=== PATIENT | male | born 1960 | race Caucasian/White ===

== ENCOUNTER 2016-12-21 00:43 | Inpatient (IN) | payer MEDICARE, MEDICAID ==
[~2016-12-21] VITALS: Ht 177.8 cm; Wt 104.2 kg
[2016-12-21 01:56] LABS: BASOPHILS 0.2 % (0-2); EOSINOPHILS 1.2 % (0-7); HEMATOCRIT 34.2 % (42.0-54.0); HEMOGLOBIN 10.6 g/dL (13.5-17.5); IMMATURE GRANULOCYTES 0.2 % (0-5); LYMPHOCYTES 15.9 % (15-50); MCH 34.4 pg (26.0-34.0); MONOCYTES 8.3 % (2-11); NEUTROPHILS 74.2 % (40-80); RBC 3.08 10x6/uL (4.20-6.10); RDW 13.8 % (11.5-14.5); WBC 8.6 10x3/uL (4.8-10.8)
[2016-12-21 02:00] LABS: PLATELET COUNT 127 10x3/uL (130-400)
[2016-12-21 02:07] LABS: ALBUMIN 3.5 g/dL (3.4-5.0); ALKALINE PHOSPHATASE 144 U/L (46-116); ALT (SGPT) 24 U/L (10-68); CALC OSMOLALITY 297 mosm/kg (275-300); CALCIUM 8.7 mg/dL (8.5-10.1); CARBON DIOXIDE 24.4 mmol/L (21.0-32.0); CHLORIDE - SERUM 103 mmol/L (98-107); CREATININE - SERUM 11.2 mg/dL (0.6-1.3); GLUCOSE 102 mg/dL (74-106); POTASSIUM - SERUM 4.5 mmol/L (3.5-5.1); PROTEIN - SERUM 7.2 g/dL (6.4-8.2); SODIUM 141 mmol/L (136-145); UREA NITROGEN 59 mg/dL (7-18); eGFR NON AFRICAN AMERICAN 5 mL/min (90-120)
[2016-12-21 02:17] LABS: AMYLASE - SERUM 94 U/L (25-115); CARBAMAZEPINE (TEGRETOL) 10.8 ug/mL (4.0-12.0); CKMB 1.5 U/L (0.0-3.6); CREATINE KINASE 49 UL (21-232); LIPASE 188 U/L (73-393); PRO BNP 11538 pg/mL (0-125); THYROID STIMULATING HORMONE 1.55 uIU/mL (0.36-3.74); TROPONIN-I 0.045 ng/mL (0.000-0.060)
--- NOTE | 2016-12-21 05:03 | NUR ---
PT ARRIVED VIA STRETCHER. NO DISTRESS NOTED. WILL CONTINUE TO MONITOR.
[2016-12-21] MEDS ORDERED: ZYLOPRIM100 MG PO (05:29)
[2016-12-21 05:30] VITALS: BP 156/95; BMI 34.0
[2016-12-21] MEDS ORDERED: BAYER CHEWABLE81 MG PO (05:30)
[2016-12-21] MEDS ORDERED: TEGRETOL200 MG PO ×2 (05:30→05:31)
[2016-12-21] MEDS ORDERED: KEPPRA1000 MG PO (05:31)
[2016-12-21] MEDS ORDERED: HYDRALAZINE HCL25 MG PO (05:31)
[2016-12-21] MEDS ORDERED: ZESTRIL40 MG PO (05:33)
[2016-12-21] MEDS ORDERED: FUROSEMIDE20 MG PO (05:33)
[2016-12-21] MEDS ORDERED: LOPRESSOR25 MG PO (05:34)
[2016-12-21] MEDS ORDERED: PLAVIX75 MG PO (05:34)
[2016-12-21] MEDS ORDERED: PRAVACHOL40 MG PO (05:35)
[2016-12-21] MEDS ORDERED: RENVELA800 MG PO ×2 (05:35→05:36)
[2016-12-21] MEDS ORDERED: SENNA LAXATIVE8.6 MG PO (05:39)
--- NOTE | 2016-12-21 05:40 | NUR ---
ADMISSION ASSESSMENT, HISTORY AND HOME MED LIST COMPLETED. PT ESSENTIALLY NON-VERBAL. ONLY ABLE TO ANSWER YES/NO TO QUESTIONS. ABLE TO GESTURE INFO. IV TO R THUMB SL. O2 2LNC. LUNGS DIMINISHED IN BASES BILAT. UMBILICUS HERNIA NOTED. L ARM AVF WITH GOOD BRUIT AND THRILL. CM DENOTES SR HR 91. VSS. DENIES ANY DISCOMFORT. SR UP X2, CALL LIGHT WITHIN REACH.
[2016-12-21] MEDS ORDERED: LIDOCAINE-PRILOC5 GM TP (05:41)
[2016-12-21] MEDS ORDERED: LOTRISONE CREAM45 GM TOPICAL (05:41)
[2016-12-21] MEDS ORDERED: ATARAX 25 MG TA25 MG PO (05:43)
[2016-12-21] MEDS ORDERED: CATAPRES0.1 MG PO (05:44)
[2016-12-21] MEDS ORDERED: COLACE100 MG PO (05:45)
[2016-12-21] MEDS ORDERED: ULTRAM50 MG PO (05:45)
[2016-12-21] MEDS ORDERED: ZOFRAN4 MG PO (05:46)
[2016-12-21] MEDS ORDERED: MUCINEX D1 TAB.SR . PO (05:46)
[2016-12-21] MEDS ORDERED: ALLEGRA-D1 TAB.SR . PO (05:47)
[2016-12-21] MEDS ORDERED: OMNICEF300 MG PO (05:47)
[2016-12-21] MEDS ORDERED: PHENERGAN DM SYR5 ML PO (05:47)
[2016-12-21 08:28] VITALS: BP 189/100
[2016-12-21 12:59] VITALS: Ht 177.8 cm; Wt 104.2 kg
[2016-12-21 13:42] VITALS: BP 205/92
[2016-12-21 16:05] VITALS: BP 172/86
--- NOTE | 2016-12-21 17:42 | NUR ---
Mr. Porter had bedside hemodialyis via his left lower arm av fistula from 1511 until 1711. Average bloood flow was 350 mls/minute. Net fluid removed was 2000nmls. Post vital signs were: B/P: 161/84, HR:79, Temp:97.7, Resps:18.
[2016-12-21 20:46] VITALS: BP 144/63; BP 149/60
[2016-12-21 23:58] VITALS: BP 135/54
--- NOTE | 2016-12-22 03:58 | NUR ---
RECIEVED PATIENT IN BED, NON-VERBAL, SIDE RAILS UP X 2, BED LOW LOCKED POSTION, CALL LIGHT AND WATER IN REACH, SEE ASSESSMENT, CPOC.
[2016-12-22 04:11] VITALS: BP 148/57
--- NOTE | 2016-12-22 09:48 | NUR ---
PT REFUSED SCD, PT DOES GET UP AD DOROTEO
[2016-12-22 09:49] VITALS: BP 202/105
[2016-12-22 13:12] VITALS: BP 203/103
--- NOTE | 2016-12-22 15:52 | NUR ---
ALERT AND ORIENTED X4. SITTING UP ON SIDE OF BED. SHOWER AND LINEN CHANGE COMPLETE. RECHECK BP AFTER GIVING PRN CLONIDINE 0.1mg. BP-170/90. HEADACHE RELIEVED BY ULTRAM PER ORDER. FAMILY AT BEDSIDE. SINUS RHTHYM 96bpm ON TELEMETRY. DENIES ANY NEEDS. CONTINUE PLAN OF CARE AND SAFETY PRECAUTIONS.
--- NOTE | 2016-12-22 19:30 | NUR ---
RECEIVED REPORT, SITTING ON SIDE OF BED, DENIES ANY NEEDS, CALL LIGHT IN REACH, AT BEDSIDE, WILL CONTINUE CARE OF PLAN
[2016-12-22 20:00] VITALS: BP 191/94
[2016-12-23 01:32] VITALS: BP 136/72
--- NOTE | 2016-12-23 01:50 | NUR ---
ASLEEP NO DISTRESS. WILL CONTINUE TO MONITOR.
[2016-12-23 04:16] VITALS: BP 188/67
--- NOTE | 2016-12-23 04:30 | NUR ---
ASSESSMENT COMPLETE, SLEEPING ON R.SIDE, CALL LIGHT IN REACH, BED IS LOW, SRX2, WILL CONTINUE PLAN OF CARE
[2016-12-23 06:26] LABS: BASOPHILS 0.4 % (0-2); EOSINOPHILS 2.6 % (0-7); HEMATOCRIT 29.7 % (42.0-54.0); HEMOGLOBIN 9.5 g/dL (13.5-17.5); IMMATURE GRANULOCYTES 0.2 % (0-5); LYMPHOCYTES 21.2 % (15-50); MCH 34.7 pg (26.0-34.0); MCV 108.4 fL (80.0-100.0); MEAN PLATELET VOLUME 10.8 fL (7.4-10.4); MONOCYTES 9.5 % (2-11); NEUTROPHILS 66.1 % (40-80); PLATELET COUNT 112 10x3/uL (130-400); RBC 2.74 10x6/uL (4.20-6.10); RDW 13.9 % (11.5-14.5); WBC 5.3 10x3/uL (4.8-10.8)
[2016-12-23 06:55] LABS: ALBUMIN 3.1 g/dL (3.4-5.0); ANION GAP 19.2 mmol/L (8-16); BILIRUBIN - TOTAL 0.47 mg/dL (0.2-1.3); CALCIUM 8.7 mg/dL (8.5-10.1); CREATININE - SERUM 12.5 mg/dL (0.6-1.3); PHOSPHOROUS 5.6 mg/dL (2.5-4.9); POTASSIUM - SERUM 4.2 mmol/L (3.5-5.1); PROTEIN - SERUM 6.8 g/dL (6.4-8.2)
--- NOTE | 2016-12-23 07:31 | NUR ---
0700-AM ROUNDING DONE WITH PATIENT SHAKING HIS HEAD NO TO ANY NEEDS, NON VERBAL. SALINE LOCK SEEN TO RIGHT THUMB. ON HEART MONITOR SHOWING SR, HR 81. LEFT WRIST AVF WITH + BRUIT AND THRILL, DRESSING TO IT IS CDI. ON 2L PER NC, INSP. WHEEZES HEARD THROUGOUT LUNG GALVAN. CALL LIGHT IN USE, WILL CONTINUE TO MONITOR. FOR DIALYSIS TODAY.
[2016-12-23 08:33] VITALS: BP 187/99
--- NOTE | 2016-12-23 08:57 | NUR ---
PATIENT IS MADE NPO FOR TEST.
--- NOTE | 2016-12-23 09:42 | NUR ---
0930-TO DIALYSIS VIA BED.
--- NOTE | 2016-12-23 13:22 | NUR ---
STILL OFF FLOOR IN DIALYSIS.
--- NOTE | 2016-12-23 13:49 | NUR ---
RETURNS FROM DIALYSIS VIA BED. STILL NPO FOR PIPPIDA SCAN.
--- NOTE | 2016-12-23 16:30 | NUR ---
STILL OFF FLOOR FOR PIPPIDA SCAN.
--- NOTE | 2016-12-23 17:08 | NUR ---
PATIENT TO RETURN TO ROOM FROM RADIOLOGY. WIGGLING HIS LEFT HAND LIKE IT HURTS. HE WAS GIVEN MORPHINE IN RADIOLOGY FOR TEST. I ASKED SAQIB IF HE HAD LAID ON HIS LEFT ARM DURING PROCEDURE AND SHE SAID NO, THAT HE PLACED HIS LEFT ARM ABOUT HIS HEAD FOR APPROX. 20-30 MIN FOR THE TEST. WILL MONITOR.
--- NOTE | 2016-12-23 18:18 | NUR ---
PATIENT SHAKES HIS HEAD YES THAT HIS HAND IS DOING BETTER WHEN ASKED.
[2016-12-23 19:00] VITALS: BP 148/77
--- NOTE | 2016-12-23 19:25 | NUR ---
RECEIVED REPORT, PT SITTING ON SIDE OF BED, BED IS LOW, SRX2, CALL LIGHT IN REACH, WILL CONTINUE PLAN OF CARE
[2016-12-24 00:20] VITALS: BP 187/86
--- NOTE | 2016-12-24 00:37 | NUR ---
TREATING ENGINEER HELPER AT BEDSIDE TO OBTAIN VITALS, CALL LIGHT IN REACH. WILL CONTINUE WITH PLAN OF CARE.
--- NOTE | 2016-12-24 04:17 | NUR ---
ASSESSMENT COMPLETE, SEE FLOWSHEET, BED IS LOW, SRX2, CALL LIGHT IN REACH, WILL CONTINUE PLAN OF CARE
[2016-12-24 04:37] VITALS: BP 166/77
[2016-12-24 06:52] LABS: BASOPHILS 0.7 % (0-2); EOSINOPHILS 4.8 % (0-7); HEMOGLOBIN 11.3 g/dL (13.5-17.5); IMMATURE GRANULOCYTES 0.3 % (0-5); LYMPHOCYTES 13.9 % (15-50); MCH 34.3 pg (26.0-34.0); MCHC 31.1 g/dL (31.0-37.0); MCV 110.3 fL (80.0-100.0); MONOCYTES 8.6 % (2-11); NEUTROPHILS 71.7 % (40-80); RDW 13.7 % (11.5-14.5)
[2016-12-24 06:59] LABS: HEMATOCRIT 36.3 % (42.0-54.0); PLATELET COUNT 148 10x3/uL (130-400); RBC 3.29 10x6/uL (4.20-6.10); WBC 7.2 10x3/uL (4.8-10.8)
[2016-12-24 07:17] LABS: ANION GAP 17.1 mmol/L (8-16); CALCIUM 9.3 mg/dL (8.5-10.1); CARBON DIOXIDE 27.3 mmol/L (21.0-32.0); CREATININE - SERUM 9.6 mg/dL (0.6-1.3); PHOSPHOROUS 5.9 mg/dL (2.5-4.9); POTASSIUM - SERUM 4.4 mmol/L (3.5-5.1)
--- NOTE | 2016-12-24 07:59 | NUR ---
DR HURT ORDERED A CXR ON THIS PATIENT, THERE WAS ALREADY A CXR DONE THIS AM BUT NOT RESULTED YET. SPOKE WITH THE RN AND SHE SAID TO CANCEL IT FOR NOW.
[2016-12-24 08:20] VITALS: BP 151/101
--- NOTE | 2016-12-24 08:30 | NUR ---
PATIENT IS AWAKE AND ALERT. HE IS PLEASANT, EXPLAINED SOME OF HIS NEW MEDICATIONS AND WHY AND WHAT THEY ARE FOR. HE IS GETTING EPOITEN AND LACTOBAC. SINCE HE IS GETTING AN ANTIBIOTIC.
--- NOTE | 2016-12-24 11:45 | NUR ---
EDMUNDO IS HERE FROM [place]. SHE ASKED ABOUT HIS GALLBLADDER AND IT DOES LOOK LIKE THERE IS INFLAMMATION. EXPLAINED THAT DR. RODRÍGUEZ HAS BEEN CONSULTED SO HE WILL BE HERE A WHILE LONGER, NO D/C ORDER. SISTER VERBALIZED UNDERSTANDING.
[2016-12-24 12:28] VITALS: BP 212/106
--- NOTE | 2016-12-24 12:39 | NUR ---
PATIENTS BLOOD PRESSURE IS 212/106, CLONIDINE 0.1 MG PO GIVEN NOW.
--- NOTE | 2016-12-24 14:43 | NUR ---
Nutrition Follow Up: Spoke with pt and pt's . He stated that he has not been eating well because he has been laying in bed. Pt agreed to Nepro daily. Food preferences noted. Pt is eating 33% meal avg on a renal diet. Wt loss 7# since admit likely r/t fluid. +BM 12/22/16. Labs reviewed - BUN, Cr, Phos elevated. Meds noted. Pt with poor po intake at this time. Rec continue current diet. Rec consider an appetite stimulant. Will send Nepro with breakfast meal. RD will continue to monitor pt progress.
[2016-12-24 16:54] VITALS: BP 174/93
--- NOTE | 2016-12-24 18:07 | NUR ---
DENIES NEEDS AT PRESENT TIME. FOR DIALYSIS TOMORROW. WILL CONTINUE TO MONITOR.
--- NOTE | 2016-12-24 19:31 | NUR ---
ASSESSMENT COMPLETE, A&O. RESPERATIONS EVEN ON RA. IV TO RIGHT HAND SL. SITE CLEAN AND DRY. RESERVE LEFT ARM FOR AVF (+,+). PT DENIES PAIN OR NEEDS AT THIS TIME, BED LOW, CL IN REACH.
--- NOTE | 2016-12-24 21:11 | NUR ---
HS MEDS GIVEN, PHONE CALL PLACED TO PTS SISTER AT PT REQUEST. NO OTHER NEEDS AT THIS TIME, BED LOW, CL IN REACH, WILL CONT TO MONITOR.
[2016-12-24 22:47] VITALS: BP 154/87
--- NOTE | 2016-12-25 00:15 | NUR ---
DIALYSIS COORDINATOR: PATHWAYS: [facility] DIALYSIS WED/WED/WED @ 9:45AM. LINN TAYLOR.
--- NOTE | 2016-12-25 00:37 | NUR ---
SUPERVISOR MULTIFOCAL LENS AT BEDSIDE TO OBTAIN VITALS, CALL LIGHT IN REACH. WILL CONTINUE WITH PLAN OF CARE.
[2016-12-25 01:51] VITALS: BP 133/84
--- NOTE | 2016-12-25 04:26 | NUR ---
RESTING WITH EYES CLOSED, RESPERATIONS EVEN, NO S/S DISTRESS NOTED.
[2016-12-25 05:12] LABS: BASOPHILS 0.6 % (0-2); EOSINOPHILS 6.6 % (0-7); HEMATOCRIT 32.3 % (42.0-54.0); IMMATURE GRANULOCYTES 0.3 % (0-5); LYMPHOCYTES 18.4 % (15-50); MCV 109.9 fL (80.0-100.0); MEAN PLATELET VOLUME 11.1 fL (7.4-10.4); MONOCYTES 10.8 % (2-11); NEUTROPHILS 63.3 % (40-80); PLATELET COUNT 126 10x3/uL (130-400); RBC 2.94 10x6/uL (4.20-6.10); WBC 6.2 10x3/uL (4.8-10.8)
[2016-12-25 05:13] VITALS: BP 118/55
[2016-12-25 05:29] LABS: ANION GAP 16.4 mmol/L (8-16); CALCIUM 8.8 mg/dL (8.5-10.1); CREATININE - SERUM 11.9 mg/dL (0.6-1.3); PHOSPHOROUS 7.6 mg/dL (2.5-4.9); POTASSIUM - SERUM 4.4 mmol/L (3.5-5.1)
--- NOTE | 2016-12-25 07:29 | NUR ---
AM ROUNDING DONE WITH PATIENT LAYING ON BACK WITH EYES CLOSED, RESP ARE EVEN AND NON LABORED. RESERVE LEFT ARM AVF. FOR DIALYSIS TODAY. ON HEART MONITOR SHOWING SR, HR 75. SALINE LOCK SEEN TO RIGHT HAND. WILL MONITOR.
[2016-12-25 08:00] VITALS: BP 124/54
[2016-12-25] MEDS ORDERED: NEPHRO-VITE RX1 TAB PO (09:47)
--- NOTE | 2016-12-25 10:56 | NUR ---
Patient Name: MILLI BOSWELL Admission Status: ER Accout number: [id number] Admission Date: 12-21-2016 : 1960 Admission Diagnosis:PNEUMONIA, UNSPECIFIED ORGANISM Attending: AJ Current LOS: 4 Anticipated DC Date: 12-25-2016 Planned Disposition: Assisted Living Primary Insurance: MEDICARE A & B PLANNED EXTERNAL PROVIDER: [facility] IN [place] Discharge Planning Comments: * Is the patient Alert and Oriented? Yes 0 * How many steps to enter\exit or inside your home? NONE 0 * PCP DR. KARLY GOMEZ 0 * Pharmacy [facility] IN [place] 0 * Preadmission Environment Assisted Living 0 * Facility Name [facility], 0 * ADLs Partial Dependent 0 * Partial ADLs (Assistance needed) Medication Management 0 * Equipment None 0 * Other Equipment NO MEDICAL EQUIPMENT PROVIDER PREFERENCE 0 * List name and contact numbers for known caregivers / representatives who currently or will assist patient after discharge: ELKE REED, SISTER, 0 * Community resources currently utilized Assisted Living 0 * Please name any agencies selected above. [facility] IN [place] 0 * Additional services required to return to the preadmission environment? No 0 * Can the patient safely return to the preadmission environment? Yes 0 * Has this patient been hospitalized within the prior 30 days at any hospital? No 0 CM MET WITH PT IN ROOM TO DISCUSS DISCHARGE NEEDS AND PLANNING. PT REPORTS LIVING AT [facility] IN [facility]IVING, THEY ASSIST WITH MEALS, MEDICATIONS AND TRANSPORTATION TO AND FROM DIALYSIS. PT REPORTS FEELING SAFE THERE AND WILL RETURN TO HIS APARTMENT AT DISCHARGE. [facility] OR HIS SISTER WILL PICK HIM UP. CM LATER RECEIVED DISCHARGE ORDER, CALLED [facility], , SPOKE TO ELSY WHO REPORTS PT WAS TRANSFERRING AND WALKING INDEPENDENTLY AND WITHOUT ASSISTIVE DEVICE. ELSY WILL CALL PT'S SISTER AND SEE IF SHE CAN PICK HIM UP TODAY AFTER LUNCH AND IF NOT, [facility] WILL SEND THE V[facility]. FOR DISHCHARGE, FAX DISCHARGE INFORMATION TO [facility] AT [phone], NURSE REPORT TO BE CALLED TO NURSE JOEL OF [facility] AT [phone]. PT'S SISTER OR [facility] WILL CARDIOTHORACIC ICU RN PT THIS AFTERNOON FOR DISCHARGE HOME. Drip Pumper: Poncho Kessler
--- NOTE | 2016-12-25 12:07 | NUR ---
STILL OFF FLOOR IN DIALYSIS.
--- NOTE | 2016-12-25 13:04 | NUR ---
REPORT CALLED TO WISAM AT [facility].
--- NOTE | 2016-12-25 14:14 | NUR ---
STILL IN DIALYSIS.
--- NOTE | 2016-12-25 14:30 | NUR ---
PATIENT TO RETURN TO ROOM FROM DIALYSIS. I CALLED WISAM AT [facility] AND SHE WILL CONTACT ELKE (SISTER) TO COME PICK HIM UP.
--- NOTE | 2016-12-25 15:46 | NUR ---
ELKE HERE TO PICK HIM UP FOR DISCHARGE. PATIENT GESTURES THAT HIS RIGHT LEG HIS NUMB. ABLE TO WALK WITH ASSIST. EYES ARE EQUAL AND REACTIVE, RIGHT HAND IS SLIGHTLY WEAKER THAN RIGHT, NO DROOPING OF MOUTH. CALL PLACED TO RAISA LEGGETT APN WITH RENAL FOR FURTHER ORDERS. SALINE LOCK IS STILL IN. AWAITING CALL BACK.
--- NOTE | 2016-12-25 15:48 | NUR ---
ON HEART MONITOR SR, HR 96.
--- NOTE | 2016-12-25 16:07 | NUR ---
Patient Name: MILLI BOSWELL Encounter No: [id number] : 1960 Primary Insurance: MEDICARE A & B Anticipated DC Date: 12-25-2016 Planned Disposition: Assisted Living External Planned Provider: [facility] IN [place] DCP follow-up note: CM FAXED DISCHARGE INFORMATION TO [facility] AT [phone]. NURSE REPORT TO BE CALLED TO NURSE JOEL OF [facility] AT [phone]. PT'S SISTER HERE TO REPACK ROOM WORKER PT THIS AFTERNOON FOR DISCHARGE HOME. IMPORTANT MESSAGE FROM MEDICARE PROVIDED AND EXPLAINED. Content Designer: Poncho Kessler
[2016-12-25 16:46] VITALS: BP 153/84
--- NOTE | 2016-12-25 16:50 | NUR ---
1644-RAISA LEGGETT APN TO CALL BACK AND INFORMATION IS GIVEN TO HER. I ALSO TOLD HER THAT 1700 CC WAS PULLED OFF AND THAT HE HAS SOME CRAMPING AT THE END OF DIALYSIS. SHE THOUGHT THAT HE WAS OKAY STILL FOR DISCHAGE. THIS IS RELAYED TO ELKE AND THE PATIENT.
--- NOTE | 2016-12-25 17:53 | NUR ---
VERBAL AND WRITTEN DISCHARGE INSTRUCTIONS GIVEN TO PATIENT AND SISTER. SALINE LOCK REMOVED WITH CATH TIP INTACT. COBAN WRAPPED AROUND HAND TO STOP BLEEDING. PAST WATCHING THIS FOR SEVERAL MINUTES, DISCHARGED HOME VIA WHEELCHAIR.
== END 2016-12-25 17:55 | disposition home or self-care (01) | DRG 193 ==
LOC: D.ER 00:43 → D.M2 04:07
PROVIDERS: Family Medicine; Internal Medicine Nephrology; ADMIT Internal Medicine
PROC: 5A1D60Z (ICD-10-PCS; principal; 2016-12-21)
DX: J18.9 Pneumonia, unspecified organism (principal); N18.6 End stage renal disease; I13.2 Hypertensive heart and chronic kidney disease with heart failure and with stage 5 chronic kidney disease, or end stage renal disease; K80.10 Calculus of gallbladder with chronic cholecystitis without obstruction; Z99.2 Dependence on renal dialysis; G40.909 Epilepsy, unspecified, not intractable, without status epilepticus; I69.991 Dysphagia following unspecified cerebrovascular disease; D63.1 Anemia in chronic kidney disease; I50.9 Heart failure, unspecified; R13.10 Dysphagia, unspecified; K43.9 Ventral hernia without obstruction or gangrene; I25.10 Atherosclerotic heart disease of native coronary artery without angina pectoris; E78.5 Hyperlipidemia, unspecified; Z95.5 Presence of coronary angioplasty implant and graft; Z87.891 Personal history of nicotine dependence

== ENCOUNTER 2017-01-04 03:18 | Emergency (ER) | payer MEDICARE, MEDICAID ==
[2016-12-21 12:59] VITALS: BMI 33.8
[~2017-01-04 03:18] MED LIST: ALLEGRA-D1 TAB.SR . PO; ATARAX 25 MG TA25 MG PO; BAYER CHEWABLE81 MG PO; CATAPRES0.1 MG PO; COLACE100 MG PO; FUROSEMIDE20 MG PO; HYDRALAZINE HCL25 MG PO; KEPPRA1000 MG PO; LIDOCAINE-PRILOC5 GM TP; LOPRESSOR25 MG PO; LOTRISONE CREAM45 GM TOPICAL; MUCINEX D1 TAB.SR . PO; NEPHRO-VITE RX1 TAB PO; OMNICEF300 MG PO; PHENERGAN DM SYR5 ML PO; PLAVIX75 MG PO; PRAVACHOL40 MG PO; RENVELA800 MG PO; SENNA LAXATIVE8.6 MG PO; TEGRETOL200 MG PO; ULTRAM50 MG PO; ZESTRIL40 MG PO; ZOFRAN4 MG PO; ZYLOPRIM100 MG PO
[2017-01-04 04:10] LABS: BASOPHILS 0.7 % (0-2); EOSINOPHILS 2.1 % (0-7); HEMATOCRIT 33.3 % (42.0-54.0); HEMOGLOBIN 10.5 g/dL (13.5-17.5); IMMATURE GRANULOCYTES 0.3 % (0-5); LYMPHOCYTES 23.7 % (15-50); MCH 34.7 pg (26.0-34.0); MCHC 31.5 g/dL (31.0-37.0); MCV 109.9 fL (80.0-100.0); MEAN PLATELET VOLUME 10.1 fL (7.4-10.4); MONOCYTES 7.7 % (2-11); NEUTROPHILS 65.5 % (40-80); RBC 3.03 10x6/uL (4.20-6.10); RDW 13.5 % (11.5-14.5); WBC 6.7 10x3/uL (4.8-10.8)
[2017-01-04 04:16] LABS: PLATELET COUNT 179 10x3/uL (130-400)
[2017-01-04 04:24] LABS: ALBUMIN 3.4 g/dL (3.4-5.0); ANION GAP 17.7 mmol/L (8-16); BILIRUBIN - TOTAL 0.31 mg/dL (0.2-1.3); CALCIUM 8.8 mg/dL (8.5-10.1); CARBON DIOXIDE 25.9 mmol/L (21.0-32.0); CREATININE - SERUM 11.8 mg/dL (0.6-1.3); POTASSIUM - SERUM 4.6 mmol/L (3.5-5.1); PROTEIN - SERUM 7.4 g/dL (6.4-8.2)
[2017-01-04 04:28] LABS: TROPONIN-I 0.043 ng/mL (0.000-0.060)
== END 2017-01-04 05:44 | disposition home or self-care (01) ==
LOC: D.ER 03:18
PROVIDERS: Emergency Medicine
DX: R06.00 Dyspnea, unspecified (principal); I12.0 Hypertensive chronic kidney disease with stage 5 chronic kidney disease or end stage renal disease; N18.6 End stage renal disease; I50.9 Heart failure, unspecified; G40.909 Epilepsy, unspecified, not intractable, without status epilepticus; Z86.73 Personal history of transient ischemic attack (TIA), and cerebral infarction without residual deficits; I49.3 Ventricular premature depolarization; I45.10 Unspecified right bundle-branch block

== ENCOUNTER 2017-01-05 17:14 | Emergency (ER) | payer MEDICARE ==
[2016-12-21 12:59] VITALS: BMI 33.8
== END 2017-01-05 20:44 | disposition home or self-care (01) ==
LOC: D.ER 17:14
DX: R04.2 Hemoptysis (principal); I50.9 Heart failure, unspecified; I12.0 Hypertensive chronic kidney disease with stage 5 chronic kidney disease or end stage renal disease; N18.6 End stage renal disease; Z86.73 Personal history of transient ischemic attack (TIA), and cerebral infarction without residual deficits

== ENCOUNTER 2017-01-17 23:42 | Emergency (ER) | payer MEDICARE ==
[2016-12-21 12:59] VITALS: BMI 33.8
[2017-01-18 00:36] LABS: HEMATOCRIT 30.5 % (42.0-54.0); HEMOGLOBIN 9.8 g/dL (13.5-17.5); LYMPHOCYTES 18.2 % (15-50); MCH 34.3 pg (26.0-34.0); MCHC 32.1 g/dL (31.0-37.0); MCV 106.6 fL (80.0-100.0); MEAN PLATELET VOLUME 10.4 fL (7.4-10.4); NEUTROPHILS 69.9 % (40-80); PLATELET COUNT 163 10x3/uL (130-400); RBC 2.86 10x6/uL (4.20-6.10); RDW 13.2 % (11.5-14.5); WBC 6.4 10x3/uL (4.8-10.8)
[2017-01-18 01:00] LABS: ANION GAP 17.1 mmol/L (8-16); BILIRUBIN - TOTAL 0.39 mg/dL (0.2-1.3); CALCIUM 8.3 mg/dL (8.5-10.1); CARBON DIOXIDE 26.7 mmol/L (21.0-32.0); CREATININE - SERUM 10.9 mg/dL (0.6-1.3); POTASSIUM - SERUM 4.8 mmol/L (3.5-5.1); PROTEIN - SERUM 6.7 g/dL (6.4-8.2); TROPONIN-I 0.042 ng/mL (0.000-0.060)
== END 2017-01-18 02:35 | disposition home or self-care (01) ==
LOC: D.ER 23:42
PROVIDERS: Family Medicine; Physician Assistant Medical
DX: I50.9 Heart failure, unspecified (principal); R06.00 Dyspnea, unspecified; G40.909 Epilepsy, unspecified, not intractable, without status epilepticus; I12.9 Hypertensive chronic kidney disease with stage 1 through stage 4 chronic kidney disease, or unspecified chronic kidney disease; N18.9 Chronic kidney disease, unspecified

== ENCOUNTER 2017-01-25 01:51 | Emergency (ER) | payer MEDICARE ==
[2016-12-21 12:59] VITALS: BMI 33.8
== END 2017-01-25 05:25 | disposition home or self-care (01) ==
LOC: D.ER 01:51
DX: R06.02 Shortness of breath (principal); N18.6 End stage renal disease; E87.70 Fluid overload, unspecified; I50.9 Heart failure, unspecified; I10 Essential (primary) hypertension

== ENCOUNTER 2017-02-16 13:39 | Emergency (ER) | payer MEDICARE ==
[2016-12-21 12:59] VITALS: BMI 33.8
[2017-02-16 14:51] LABS: BASOPHILS 0.6 % (0-2); EOSINOPHILS 2.6 % (0-7); HEMATOCRIT 30.4 % (42.0-54.0); HEMOGLOBIN 9.6 g/dL (13.5-17.5); IMMATURE GRANULOCYTES 0.2 % (0-5); LYMPHOCYTES 25.6 % (15-50); MCH 34.7 pg (26.0-34.0); MCHC 31.6 g/dL (31.0-37.0); MCV 109.7 fL (80.0-100.0); MEAN PLATELET VOLUME 10.5 fL (7.4-10.4); MONOCYTES 13.8 % (2-11); NEUTROPHILS 57.2 % (40-80); PLATELET COUNT 167 10x3/uL (130-400); RBC 2.77 10x6/uL (4.20-6.10); RDW 13.4 % (11.5-14.5); WBC 5.4 10x3/uL (4.8-10.8)
[2017-02-16 15:03] LABS: ALBUMIN 3.2 g/dL (3.4-5.0); ANION GAP 17.7 mmol/L (8-16); BILIRUBIN - TOTAL 0.46 mg/dL (0.2-1.3); CALCIUM 8.7 mg/dL (8.5-10.1); CARBON DIOXIDE 25.2 mmol/L (21.0-32.0); CREATININE - SERUM 9.4 mg/dL (0.6-1.3); POTASSIUM - SERUM 4.9 mmol/L (3.5-5.1); PROTEIN - SERUM 7.1 g/dL (6.4-8.2)
== END 2017-02-16 16:47 | disposition home or self-care (01) ==
LOC: D.ER 13:39
PROVIDERS: Emergency Medicine
DX: I10 Essential (primary) hypertension (principal); R11.0 Nausea; I12.9 Hypertensive chronic kidney disease with stage 1 through stage 4 chronic kidney disease, or unspecified chronic kidney disease; N18.9 Chronic kidney disease, unspecified; G40.909 Epilepsy, unspecified, not intractable, without status epilepticus

== ENCOUNTER 2017-03-21 22:07 | Emergency (ER) | payer MEDICARE ==
[2016-12-21 12:59] VITALS: BMI 33.8
[2017-03-21 22:43] LABS: BASOPHILS 0.6 % (0-2); EOSINOPHILS 3.1 % (0-7); HEMATOCRIT 35.5 % (42.0-54.0); HEMOGLOBIN 11.3 g/dL (13.5-17.5); IMMATURE GRANULOCYTES 0.2 % (0-5); LYMPHOCYTES 19.1 % (15-50); MCH 33.3 pg (26.0-34.0); MCHC 31.8 g/dL (31.0-37.0); MCV 104.7 fL (80.0-100.0); MEAN PLATELET VOLUME 10.7 fL (7.4-10.4); MONOCYTES 8.8 % (2-11); NEUTROPHILS 68.2 % (40-80); PLATELET COUNT 292 10x3/uL (130-400); RBC 3.39 10x6/uL (4.20-6.10); RDW 13.3 % (11.5-14.5); WBC 12.1 10x3/uL (4.8-10.8)
[2017-03-21 23:04] LABS: ALBUMIN 3.7 g/dL (3.4-5.0); ANION GAP 22.1 mmol/L (8-16); BILIRUBIN - TOTAL 0.99 mg/dL (0.2-1.3); CALCIUM 8.5 mg/dL (8.5-10.1); CARBON DIOXIDE 23.1 mmol/L (21.0-32.0); CREATININE - SERUM 11.2 mg/dL (0.6-1.3); POTASSIUM - SERUM 5.2 mmol/L (3.5-5.1); PROTEIN - SERUM 8.2 g/dL (6.4-8.2)
[2017-03-21 23:10] LABS: MAGNESIUM - SERUM 2.4 mg/dL (1.8-2.4); TROPONIN-I 0.049 ng/mL (0.000-0.060)
== END 2017-03-22 00:10 | disposition home or self-care (01) ==
LOC: D.ER 22:07
PROVIDERS: Emergency Medicine
DX: I12.0 Hypertensive chronic kidney disease with stage 5 chronic kidney disease or end stage renal disease (principal); N18.6 End stage renal disease; R60.9 Edema, unspecified; I45.10 Unspecified right bundle-branch block

== ENCOUNTER 2017-04-06 09:25 | Inpatient (IN) | payer MEDICARE ==
[~2017-04-06] VITALS: Ht 177.8 cm; Wt 106.0 kg
--- NOTE | ~2017-04-06 | CN ---
PATIENT NAME:MILLI BOSWELL MEDICAL RECORD: [id number] : [birth year] LOCATION:D. D.2134 ADMIT DATE: 04/06/17 ACCOUNT: [id number] CONSULTING PHYSICIAN: CARLY MARSHALL MD REFERRING PHYSICIAN: CLYDE SAMPSON MD DATE OF CONSULTATION: 04/07/2017 CONSULT REQUESTING PHYSICIAN: Dr. Clyde Sampson. REASON FOR CONSULTATION: Pneumonia, acute exacerbation of chronic obstructive pulmonary disease. HISTORY OF PRESENT ILLNESS: Mr. Boswell is a 56-year-old gentleman, very well known to me. According to the patient, he is sick for the last couple of days. He has a fever. He is coughing and he has shortness of breath. The cough is productive with white-yellow colored sputum production. REVIEW OF SYSTEMS: Mainly in the history of present illness. PAST MEDICAL HISTORY: 1. History of cerebrovascular accident. 2. Seizure disorder. 3. Aphasic. 4. Hypertension. 5. Congestive heart failure. 6. Coronary artery disease status post stent angioplasty. 7. Peripheral vascular disease. 8. Hyperlipidemia. 9. Obstructive sleep apnea on CPAP. PAST SURGICAL HISTORY: He is status post fistula placement. ALLERGIES: There are no known drug allergies. PRESENT MEDICATIONS: On Proximal Data was reviewed. PERSONAL AND SOCIAL HISTORY: The patient is an ex-smoker. He is a nondrinker. FAMILY HISTORY: Significant for cardiovascular disease. PHYSICAL EXAMINATION: GENERAL: Now, the patient is lying comfortably in bed. He is not in acute distress. VITAL SIGNS: The blood pressure is 145/80, pulse is 83, respiration is 16, temperature 98.2, SPO2 is 98% on 2 liters nasal cannula. HEENT: Conjunctivae pink, sclerae nonicteric. NECK: Supple, no JVD. CHEST: Excursion is minimal on both sides. There are bilateral crackles. Wheeze on forceful expiration. HEART: Rhythm regular, normal sound, no murmur. ABDOMEN: Soft. Bowel sounds present. No hepatosplenomegaly. RECTAL: Deferred. EXTREMITIES: No cyanosis, no clubbing, no pedal edema. SKIN: Warm, normal turgor. CENTRAL NERVOUS SYSTEM: The patient is aphasic, status post cerebrovascular CONSULT REPORT [id number] MILLI BOSWELL accident. IMAGING: Chest radiograph, there is bilateral interstitial marking. OTHER LABORATORY DATA: CBC: WBC 7.7, hemoglobin 9.2, hematocrit 29 and platelet count 160. Chemistry: Sodium is 140, potassium 5.1, BUN is 65, creatinine 11.1, glucose 104. IMPRESSION: 1. Acute hypoxic respiratory failure secondary to pneumonia consistent with community-acquired pneumonia. 2. Pulmonary edema, possible fluid overload with end-stage renal disease. 3. Acute exacerbation of chronic obstructive pulmonary disease. 4. Obstructive sleep apnea, CPAP machine at home. 5. Ex-smoker. 6. History of cerebrovascular accident. 7. Seizure disorder. RECOMMENDATION: 1. Continue Zosyn and vancomycin. 2. Start methylprednisolone IV, Brovana and budesonide nebulizer b.i.d., albuterol and ipratropium nebulizer q.i.d. 3. Follow up labs and chest radiograph in the morning. Dr. Sampson once again thank you for involving me in the care of Mr. Boswell. TRANSINT:[id number] Voice Confirmation ID: [id number] DOCUMENT ID: [id number] CARLY MARSHALL MD CC: CLYDE SAMPSON MD [id number] DICTATION DATE: 04/07/17 1507 SCRAP METAL BURNER: 04/07/17 2100 ADM IN [facility] [address] [id number]
[2017-04-06 10:26] LABS: BASOPHILS 0.9 % (0-2); EOSINOPHILS 1.8 % (0-7); HEMOGLOBIN 9.6 g/dL (13.5-17.5); IMMATURE GRANULOCYTES 0.2 % (0-5); LYMPHOCYTES 11.1 % (15-50); MCH 33.8 pg (26.0-34.0); MCV 105.6 fL (80.0-100.0); MEAN PLATELET VOLUME 10.7 fL (7.4-10.4); MONOCYTES 16.6 % (2-11); NEUTROPHILS 69.4 % (40-80); RBC 2.84 10x6/uL (4.20-6.10); RDW 13.5 % (11.5-14.5); WBC 6.6 10x3/uL (4.8-10.8)
[2017-04-06 10:31] LABS: PLATELET COUNT 164 10x3/uL (130-400)
[2017-04-06 10:39] LABS: ALBUMIN 3.1 g/dL (3.4-5.0); BILIRUBIN - TOTAL 0.75 mg/dL (0.2-1.3); CALCIUM 8.7 mg/dL (8.5-10.1); CARBON DIOXIDE 25.7 mmol/L (21.0-32.0); CREATININE - SERUM 9.4 mg/dL (0.6-1.3); POTASSIUM - SERUM 4.7 mmol/L (3.5-5.1); PROTEIN - SERUM 7.6 g/dL (6.4-8.2)
--- NOTE | 2017-04-06 23:20 | NUR ---
TO ROOM 1216 FROM ER VIA IID.PT IS WITHOUT DISTRESS.02 AT 2 LITERS PER NASAL CANULA.KRACKLES HEARD THROUGHOUT LUNG GALVAN.PT IS APHASIC ,BUT SAYS YES AND NO. PT ALSO HAS TROUBLE EXPRESSING HIS NEEDS.ASSESSMENT PER FLOW SHEET.CALL LIGHT IN REACH
[2017-04-06 23:58] VITALS: BP 199/112; BMI 33.2
[2017-04-07 05:23] LABS: BASOPHILS 0.4 % (0-2); EOSINOPHILS 1.8 % (0-7); HEMOGLOBIN 9.2 g/dL (13.5-17.5); IMMATURE GRANULOCYTES 0.1 % (0-5); LYMPHOCYTES 14.1 % (15-50); MCHC 31.7 g/dL (31.0-37.0); MCV 103.9 fL (80.0-100.0); MEAN PLATELET VOLUME 10.8 fL (7.4-10.4); MONOCYTES 13.2 % (2-11); NEUTROPHILS 70.4 % (40-80); PLATELET COUNT 160 10x3/uL (130-400); RBC 2.79 10x6/uL (4.20-6.10); RDW 13.1 % (11.5-14.5); WBC 7.7 10x3/uL (4.8-10.8)
--- NOTE | 2017-04-07 05:39 | NUR ---
SITTING UP AT BEDSIDE,WITHOUT DISTRESS.REMAINS [facility] CHANGE.[facility]
[2017-04-07 05:57] LABS: ANION GAP 21.2 mmol/L (8-16); CALCIUM 8.6 mg/dL (8.5-10.1); CARBAMAZEPINE (TEGRETOL) 7.8 ug/mL (4.0-12.0); CARBON DIOXIDE 23.9 mmol/L (21.0-32.0); CREATININE - SERUM 11.1 mg/dL (0.6-1.3); PHOSPHOROUS 7.7 mg/dL (2.5-4.9); POTASSIUM - SERUM 5.1 mmol/L (3.5-5.1); VANCOMYCIN - RANDOM 14.5 ug/mL (10.0-20.0)
--- NOTE | 2017-04-07 07:30 | NUR ---
AWAKE AND ALERT. ORIENTED X3. RESPONDS CORRECTLY TO YES/NO QUESTIONS. LUNGS HAVE CRACKLES WHEEZES AND DIMINISHED THROUGHOUT GLENNY IN LOWER LOBES. OCCASSIONALLLY PRODUCTIVE COUGH NOTED. SKIN IS INTACT WITHOUT REDNESS. AV FISTULA TO LEFT WRIST WITH GOOD BRUIT AND THRILL. SL TO TO LEFT AC PATENT WITHOUT REDNESS AT INSERTION SITE. DENIES NEEDS.
[2017-04-07 08:26] VITALS: BP 145/80
--- NOTE | 2017-04-07 09:30 | NUR ---
ATE ALL OF BREAKFAST PER SELF. OFF UNIT VIA BED FOR DIALYSIS.
[2017-04-07 10:36] VITALS: Ht 177.8 cm; Wt 106.0 kg
--- NOTE | 2017-04-07 14:30 | NUR ---
RETURNED FROM DIALYSIS VIA BED. A/O X3. FAMILY IN ROOM. NO C/O AT THIS TIME. ATE ALL OF LUNCH. NO CHANGES NOTED.
[2017-04-07 16:40] VITALS: BP 167/78
--- NOTE | 2017-04-07 18:00 | NUR ---
ARRIVE TO ROOM VIA WHEELCHAIR FROM WOMEN'S. ALERT AND ORIENTED X4. RESERVE LEFT ARM. DIALYSIS M-W-. HISTORY OF CVA. SPEECH SLURRED. DENIES ANY NEEDS. CONTINUE PLAN OF CARE. BED LOCKED AND LOW. CALL LIGHT IN REACH. TWO SIDERAILS UP.
--- NOTE | 2017-04-07 18:12 | NUR ---
REPORT CALLED TO MADISON MCDONOUGH ON MED 2. PATIENT TRANSFERRED VIA WC TO ROOM 2134. ALL QUESTIONS ANSWERED. ALL BELONGINGSTRANSFERRED.
[2017-04-07 19:00] VITALS: BP 159/78
--- NOTE | 2017-04-08 01:32 | NUR ---
CALL LIGHT IN REACH, WILL CONTINUE WITH PLAN OF CARE.
[2017-04-08 04:00] VITALS: BP 152/69
[2017-04-08 06:54] LABS: ANION GAP 18.7 mmol/L (8-16); CALCIUM 8.6 mg/dL (8.5-10.1); CARBON DIOXIDE 26.1 mmol/L (21.0-32.0); CREATININE - SERUM 9.6 mg/dL (0.6-1.3); POTASSIUM - SERUM 4.8 mmol/L (3.5-5.1); VANCOMYCIN - RANDOM 20.6 ug/mL (10.0-20.0)
[2017-04-08 06:55] LABS: BASOPHILS 0.3 % (0-2); EOSINOPHILS 0 % (0-7); HEMATOCRIT 28.4 % (42.0-54.0); IMMATURE GRANULOCYTES 1.6 % (0-5); LYMPHOCYTES 6.2 % (15-50); MCH 33.7 pg (26.0-34.0); MCHC 31.7 g/dL (31.0-37.0); MEAN PLATELET VOLUME 11.3 fL (7.4-10.4); MONOCYTES 5.1 % (2-11); NEUTROPHILS 86.8 % (40-80); PLATELET COUNT 151 10x3/uL (130-400); RBC 2.67 10x6/uL (4.20-6.10); RDW 13.2 % (11.5-14.5); WBC 6.3 10x3/uL (4.8-10.8)
[2017-04-08 06:59] LABS: MCV 106.4 fL (80.0-100.0)
--- NOTE | 2017-04-08 07:33 | NUR ---
PT SITTING UP IN BED RECEIVING BREATHING TX DENIES NEEDS AT THIS TIME WILL CONT TO MONITOR.
[2017-04-08 08:00] VITALS: BP 197/76
[2017-04-08 12:00] VITALS: BP 149/71
[2017-04-08 15:36] VITALS: BP 170/85
--- NOTE | 2017-04-08 17:10 | NUR ---
PT C/O ALL THE NOISE FROM CONFUSED COMBATIVE PATIENTS IN THE AREA. (PT IS THE ONLY ALERT AND ORIENTED/NON YELLING PT IN HIS POD). OFFERED TO MOVE PT TO ANOTHER ROOM IN A QUIETER POD, PT REFUSED. SAID HE DIDNT NEED TO BE MOVED THAT HE WAS FINE. AGREES. LET PT AND FAMILY KNOW THAT IF HE WANTED TO BE MOVED AND IF IT GOT TO BE TOO MUCH TO LET NURSING STAFF KNOW, PT AGREES.
--- NOTE | 2017-04-08 18:22 | NUR ---
PT SITTING UP ON SIDE OF BED DENIES ANY NEEDS AT THIS TIME
[2017-04-08 19:00] VITALS: BP 154/73
--- NOTE | 2017-04-08 19:22 | NUR ---
PT IN BED ATTENTION TOWARDS TELEVISION. DENIES NEEDS AT THIS TIME WILL CONTINUE TO MONITOR
[2017-04-09] VITALS: BP 140/58
--- NOTE | 2017-04-09 04:07 | NUR ---
PEER COUNSELOR AT BEDSIDE TO OBTAIN VITALS, CALL LIGHT IN REACH. WILL CONTINUE WITH PLAN OF CARE.
[2017-04-09 05:28] LABS: BASOPHILS 0 % (0-2); EOSINOPHILS 0 % (0-7); HEMOGLOBIN 8.6 g/dL (13.5-17.5); IMMATURE GRANULOCYTES 0.3 % (0-5); LYMPHOCYTES 5.6 % (15-50); MCH 32.3 pg (26.0-34.0); MCHC 31.9 g/dL (31.0-37.0); MEAN PLATELET VOLUME 10.9 fL (7.4-10.4); MONOCYTES 6.3 % (2-11); NEUTROPHILS 87.8 % (40-80); PLATELET COUNT 144 10x3/uL (130-400); RBC 2.66 10x6/uL (4.20-6.10); RDW 12.8 % (11.5-14.5); WBC 6.5 10x3/uL (4.8-10.8)
[2017-04-09 05:32] LABS: MCV 101.5 fL (80.0-100.0)
[2017-04-09 05:37] LABS: ANION GAP 22.8 mmol/L (8-16); CALCIUM 8.3 mg/dL (8.5-10.1); CARBON DIOXIDE 24.7 mmol/L (21.0-32.0); PHOSPHOROUS 7.8 mg/dL (2.5-4.9); POTASSIUM - SERUM 4.5 mmol/L (3.5-5.1); VANCOMYCIN - RANDOM 19.7 ug/mL (10.0-20.0)
[2017-04-09 05:38] LABS: CREATININE - SERUM 12.4 mg/dL (0.6-1.3)
--- NOTE | 2017-04-09 07:53 | NUR ---
PT SITTING UP IN BED DENIES ANY NEEDS AT THIS TIME WILL CONT TO MONITOR
[2017-04-09 08:00] VITALS: BP 150/78
--- NOTE | 2017-04-09 14:40 | NUR ---
Mr. Malave had hemodialysis today via his left lower arm av fistula from 1115 until 1415. Average blood flow was 350 mls/minute. Net fluid removed was 3000 mls. Post vital signs were: B/P: 162/77, HR: 87, Temp: 97.8, Resps: 18. No problems other than dificulty sticking.
[2017-04-09 16:24] VITALS: BP 153/69
--- NOTE | 2017-04-09 18:35 | NUR ---
PT SITTING UP ON SIDE OF BED DENIES NEEDS
[2017-04-09 19:00] VITALS: BP 158/66
--- NOTE | 2017-04-09 19:49 | NUR ---
BEDSIDE SHIFT REPORTING REC'D PT SITTING UP IN BED RESTING QUIETLY WATCHING TV AT THIS TIME. PT DENIES ANY CURRENT PAIN OR NEEDS AT THIS TIME. WILL CPOC.
[2017-04-10] VITALS: BP 151/83
[2017-04-10 04:00] VITALS: BP 148/78
[2017-04-10 06:24] LABS: BASOPHILS 0.4 % (0-2); EOSINOPHILS 0.3 % (0-7); HEMATOCRIT 30.9 % (42.0-54.0); HEMOGLOBIN 9.6 g/dL (13.5-17.5); IMMATURE GRANULOCYTES 0.5 % (0-5); LYMPHOCYTES 11.4 % (15-50); MCH 32.3 pg (26.0-34.0); MCHC 31.1 g/dL (31.0-37.0); MEAN PLATELET VOLUME 10.8 fL (7.4-10.4); MONOCYTES 11.1 % (2-11); NEUTROPHILS 76.3 % (40-80); RBC 2.97 10x6/uL (4.20-6.10)
[2017-04-10 06:29] LABS: PLATELET COUNT 201 10x3/uL (130-400); WBC 9.9 10x3/uL (4.8-10.8)
[2017-04-10 06:44] LABS: ANION GAP 21.2 mmol/L (8-16); CALCIUM 8.7 mg/dL (8.5-10.1); CARBON DIOXIDE 25.6 mmol/L (21.0-32.0); CREATININE - SERUM 9.8 mg/dL (0.6-1.3); PHOSPHOROUS 6.6 mg/dL (2.5-4.9); POTASSIUM - SERUM 3.8 mmol/L (3.5-5.1); VANCOMYCIN - RANDOM 17.3 ug/mL (10.0-20.0)
--- NOTE | 2017-04-10 07:58 | NUR ---
PT AOX4 RESP EVEN AND NONLABORED PT DENIES NEED AT THIS TIME IV TO LEFT WRIST PATENT AND INACT AT THIS TIME SRX2 BED AT LOWEST SETTING CALL LIGHT WITHIN REACH WILL CONTINUE TO MONITOR
[2017-04-10 08:49] VITALS: BP 180/86
[2017-04-10 13:18] VITALS: BP 136/74
--- NOTE | 2017-04-10 19:42 | NUR ---
RESUMED CARE OF PT, LYING IN BED RESPIRATIONS EVEN AND UNLABORED ON 3LPM VIA NC. UPDRAFT IN PROGRESS. 89 SR ON TELEMETRY, RIGHT AC SALINE LOCKED. SEE NURSE ASSESSMENT. NO NEEDS NOTED AT THIS TIME. CALL LIGHT IN REACH.
[2017-04-10 20:23] VITALS: BP 152/82
--- NOTE | 2017-04-11 00:49 | NUR ---
IV TO RIGHT UPPER ARM INFILTRATED, DC'D WITH TIP INTACT. ATTEMPTED TO RESTART IV, UNABLE TO OBTAIN IV ACCESS AND PT REFUSED ADDITIONAL STICKS. CALL LIGHT IN REACH. WILL CONTINUE TO MONITOR.
[2017-04-11 01:29] VITALS: BP 176/96
[2017-04-11 04:54] LABS: BASOPHILS 0.2 % (0-2); EOSINOPHILS 0.1 % (0-7); HEMATOCRIT 31.2 % (42.0-54.0); HEMOGLOBIN 9.8 g/dL (13.5-17.5); IMMATURE GRANULOCYTES 1.1 % (0-5); LYMPHOCYTES 10.1 % (15-50); MCH 32.6 pg (26.0-34.0); MCHC 31.4 g/dL (31.0-37.0); MCV 103.7 fL (80.0-100.0); MONOCYTES 8.4 % (2-11); NEUTROPHILS 80.1 % (40-80); PLATELET COUNT 196 10x3/uL (130-400); RBC 3.01 10x6/uL (4.20-6.10); RDW 13.1 % (11.5-14.5); WBC 9.8 10x3/uL (4.8-10.8)
[2017-04-11 05:09] LABS: ANION GAP 25.9 mmol/L (8-16); CALCIUM 8.6 mg/dL (8.5-10.1); CARBON DIOXIDE 21.9 mmol/L (21.0-32.0); CREATININE - SERUM 12.1 mg/dL (0.6-1.3); PHOSPHOROUS 8.1 mg/dL (2.5-4.9)
[2017-04-11 05:10] LABS: POTASSIUM - SERUM 4.8 mmol/L (3.5-5.1)
[2017-04-11 05:44] VITALS: BP 145/68
--- NOTE | 2017-04-11 06:14 | NUR ---
NO CHANGES FROM PREVIOUS ASSESSMENT, CALL LIGHT IN REACH. WILL CONTINUE TO MONITOR.
[2017-04-11 07:58] VITALS: BP 156/75
--- NOTE | 2017-04-11 08:03 | NUR ---
Pt is alert and oriented, speech difficulty due to hx of CVA, but able to communicate via combination of speech and hand gestures. Receiving breathing tx per respiratory staff in AM, denies SOB, denies pain. AVF to left forearm positive for thrill and bruit with dressing intact. Continues O2 at 2L via nasal cannula, is oliguric, continent of bowel. Renagel given with breakfast without observable swallowing difficulty. Pt and staff continue to maintain ISO/droplet precautions due to dx of Klebsiella pneumonia. Lung sounds diminished LLL, expiratory wheezing to all lobes on rt. Order noted that SCDs and Heparin not to be used due to risk of bleed, is up ad kelsea in room Per mini shifter report, pt has no current peripheral IV, Dr. Del Angel to be notified today.
[2017-04-11 10:19] LABS: VANCOMYCIN - RANDOM 14.1 ug/mL (10.0-20.0)
--- NOTE | 2017-04-11 11:28 | NUR ---
Florajen3 not removed as med was in med cart due to being removed previously. Med was given as directed.
[2017-04-11 11:54] VITALS: BP 168/86
--- NOTE | 2017-04-11 12:26 | NUR ---
Pt preferred to take Florajen closer or with Renagel at lunch time. Pt continues to deny pain, lying in bed watching TV after meal. Per Dr. Del Angel when rounding earlier in shift, physician requests IV Zosyn to be held due to lack of peripheral IV, which was attempted by RN and unable to obtain. Physician or RESIN FILTERER will call with new orders/advise on change to oral antibiotic after they consult secondary physician. Pt was made aware of and is in agreement with current plan.
--- NOTE | 2017-04-11 12:42 | NUR ---
Spoke with Dr. Del Angel in person who states he and MEKHI Betancourt awaiting decision by Dr. Wall regarding discontinuing Zosyn and ordering oral antibiotic. Per Dr. Del Angel, they will notify nurse when decision is made.
--- NOTE | 2017-04-11 15:57 | NUR ---
Pt resting quietly in bed, denies pain, denies needs at this time. Requested cup of fresh ice to be brought in with dinner tray.
[2017-04-11 16:12] VITALS: BP 192/82
--- NOTE | 2017-04-11 17:09 | NUR ---
Spoke with Dr. Wall in person to advise that peripheral IV was not obtained and requested IV antibiotics to change to PO per earlier conversation with Dr. Rosales. Per Dr. Wall, IV will need to be started, and physician will review meds. No new order at this time. Assisted visitor to dress in ISO precautions at dinner. Pt is sitting on side of bed, eating, denies pain, denies needs at this time.
--- NOTE | 2017-04-11 17:58 | NUR ---
Pt has wound to posterior lower leg/ankle with loose dressing, changed with minimal c/o pain. Wound is approx 9cm x 5.5cm, (narrowing to approx 1.8cm wide at ankle). Wound bed is 90% pink, with 10% yellow slough. Depth is < 0.1cm to area above ankle, but area over tendon at ankle is approx 1.8cm deep. Wound has even borders with no edema, no surrounding erythema, and no excoriation to surrounding area. Drainage serosanguinous, scant, with mild odor. Wound was cleaned with wound cleanser, covered with 4x4 gauze, wrapped with Kerlix and taped to secure.
--- NOTE | 2017-04-11 18:24 | NUR ---
Pt has no current IV, Solumedrol returned. Will request next shift to attempt IV. Physicians aware of no IV access at this time.
--- NOTE | 2017-04-11 19:51 | NUR ---
RESUMED CARE OF PT, UP IN BATHROOM. EMERGENCY LIGHT IN REACH. WILL CONTINUE TO MONITOR. SEE NURSE ASSESMENT.
[2017-04-11 20:00] VITALS: BP 138/62
--- NOTE | 2017-04-11 23:16 | NUR ---
SITTING ON SIDE OF BED, CALL LIGHT IN REACH. WILL CONTINUE TO MONITOR.
[2017-04-12] VITALS: BP 142/75
[2017-04-12 04:00] VITALS: BP 146/59
[2017-04-12 06:26] LABS: BASOPHILS 0.3 % (0-2); EOSINOPHILS 1.8 % (0-7); HEMATOCRIT 29.6 % (42.0-54.0); HEMOGLOBIN 9.4 g/dL (13.5-17.5); IMMATURE GRANULOCYTES 1.3 % (0-5); LYMPHOCYTES 10.7 % (15-50); MCH 32.8 pg (26.0-34.0); MCHC 31.8 g/dL (31.0-37.0); MCV 103.1 fL (80.0-100.0); MEAN PLATELET VOLUME 10.8 fL (7.4-10.4); MONOCYTES 10.7 % (2-11); NEUTROPHILS 75.2 % (40-80); PLATELET COUNT 200 10x3/uL (130-400); RBC 2.87 10x6/uL (4.20-6.10); RDW 12.9 % (11.5-14.5); WBC 9.7 10x3/uL (4.8-10.8)
[2017-04-12 07:04] LABS: ANION GAP 25.8 mmol/L (8-16); CARBON DIOXIDE 19.7 mmol/L (21.0-32.0); POTASSIUM - SERUM 4.5 mmol/L (3.5-5.1); VANCOMYCIN - RANDOM 12.5 ug/mL (10.0-20.0)
--- NOTE | 2017-04-12 07:30 | NUR ---
REPORT RECIEVED. PT RESTING QUEITLY, RRE JOO AND UNLABORED. PT SEEMS IRRIATED/FRUSTRATED THIS MORNING. UNABLE TO FORM COMPLETE SENETENCES DUE TO HX OF CVA. WILL ANSWER YES/NO QUESTIONS. ASSESSMENT PERFORMED. INTRODUCED SELF AND PLACED NAME ON WHITE BAORD. BED IN LOWEST POSTION, CALL PARKS IN REACH, WILL CTM.
[2017-04-12 08:00] VITALS: BP 174/82
--- NOTE | 2017-04-12 09:30 | NUR ---
22 G IV RESTARTED TO RIGHT UPPER ARM, PER ANA LEMA VASCULAR NURSE.
[2017-04-12 12:00] VITALS: BP 157/83
--- NOTE | 2017-04-12 12:03 | NUR ---
PT REFUSED SWALLOW EVAL, BECAME VERY AGITATED.
--- NOTE | 2017-04-12 14:03 | NUR ---
Mr. Porter had bedside hemodialysis today via his left lower arm av fistula. Average blood flow was 350 mls/minute. Pt started cramping in his hands and calves at 1718 off. I gave 200 mls normal saline for comfort leaving him with a net 1518mls. Post vital signs were: B/P: 166/83, HR: 87, Temp: 97.6, Resps: 20.
--- NOTE | 2017-04-12 18:30 | NUR ---
PT RESTING QUIELTY, RR EVEN AND UNLABORED. WILL GIVE REPORT ON PT CONDITION FOR THE DAY.
[2017-04-12 19:00] VITALS: BP 137/70
--- NOTE | 2017-04-12 19:36 | NUR ---
PT ASLEEP, LAYING ON LEFT SIDE. RESPIRATIONS EVEN AND UNLABORED. NO S/S OF DISTRESS. WILL CPOC
[2017-04-13 04:00] VITALS: BP 197/92
[2017-04-13 05:36] LABS: BASOPHILS 0.2 % (0-2); EOSINOPHILS 0.6 % (0-7); HEMATOCRIT 33.6 % (42.0-54.0); HEMOGLOBIN 10.6 g/dL (13.5-17.5); IMMATURE GRANULOCYTES 3.2 % (0-5); LYMPHOCYTES 9.6 % (15-50); MCH 32.6 pg (26.0-34.0); MCHC 31.5 g/dL (31.0-37.0); MCV 103.4 fL (80.0-100.0); MEAN PLATELET VOLUME 10.7 fL (7.4-10.4); MONOCYTES 4.5 % (2-11); NEUTROPHILS 81.9 % (40-80); PLATELET COUNT 225 10x3/uL (130-400); RBC 3.25 10x6/uL (4.20-6.10); WBC 12.8 10x3/uL (4.8-10.8)
[2017-04-13 06:06] LABS: ANION GAP 21.4 mmol/L (8-16); CALCIUM 8.8 mg/dL (8.5-10.1); CARBON DIOXIDE 24.2 mmol/L (21.0-32.0); CREATININE - SERUM 10.1 mg/dL (0.6-1.3); PHOSPHOROUS 7.4 mg/dL (2.5-4.9); POTASSIUM - SERUM 4.6 mmol/L (3.5-5.1)
--- NOTE | 2017-04-13 07:00 | NUR ---
RECEIVED REPORT. ASSUMED CARE OF PATIENT. CALL LIGHT WITHIN REACH. PATIENT NOTED TO HAVE APHASIA. PATIENTS SISTER AT BEDSIDE. DENIES NEEDS. DENIES PAIN. NO DISTRESS.
--- NOTE | 2017-04-13 07:39 | NUR ---
PT IV NOT FLUSHING. IV INFLATRATION. SOLU-MED NOT GIVEN AAT THIS TIME. WILL CHECK FOR ACCESS. PT HAS NO S/S OF DISTRESS. WILL CPOC
[2017-04-13 08:00] VITALS: BP 190/69
--- NOTE | 2017-04-13 08:58 | NUR ---
0800 CALLED AND LEFT MESSAGE FOR ANA VASCULAR NURSE FOR MIDLINE PLACEMENT. STILL AWAITING CALL BACK AT THIS TIME.
[2017-04-13 12:00] VITALS: BP 176/85
--- NOTE | 2017-04-13 13:55 | NUR ---
Patient Name: MILLI BOSWELL Admission Status: ER Accout number: [id number] Admission Date: 04-06-2017 : 1960 Admission Diagnosis:PNEUMONIA, UNSPECIFIED ORGANISM Attending: YVONNE Current LOS: 7 Anticipated DC Date: Planned Disposition: Assisted Living Primary Insurance: MEDICARE A & B PLANNED EXTERNAL PROVIDER: [facility] IN [place] Discharge Planning Comments: * Is the patient Alert and Oriented? Yes 0 * How many steps to enter\exit or inside your home? NONE 0 * PCP DR. MARTELL IN [place] 0 * Pharmacy [facility] IN [place] 0 * Preadmission Environment Assisted Living 0 * Facility Name [facility], 0 * ADLs Partial Dependent 0 * Partial ADLs (Assistance needed) Medication Management 0 * Equipment None 0 * Other Equipment NO MEDICAL EQUIPMENT PROVIDER PREFERENCE 0 * List name and contact numbers for known caregivers / representatives who currently or will assist patient after discharge: ELKE REED, SISTER, 0 * Community resources currently utilized Other 0 * Please name any agencies selected above. OUTPATIENT DIALYSIS, [place] [facility], M/W/F, 9236, [facility] 0 * Additional services required to return to the preadmission environment? No 0 * Can the patient safely return to the preadmission environment? Yes 0 * Has this patient been hospitalized within the prior 30 days at any hospital? No 0 CM MET WITH PT AND SISTER IN ROOM TO DISCUSS DISCHARGE PLANNING AND NEEDS. PT REPORTS LIVING AT [facility] IN [place], ASSISTED LIVING. PT REPORTS THEY ASSIST WITH MEAL PREPARATION, MEDICATIONS AND TRANSPORATION SERVICES. PT HAS NO MEDICAL EQUIPMENT AND NO OUTSIDE SERVICES ASSISTING IN THE HOME. PT GOES TO DIALYSIS IN [place] ON MWF SCHEDULE, TRANSPORT BY [facility]. CM DISCUSSED AVAILABILITY OF HOME HEALTH, REHAB SERVICES AND MEDICAL EQUIPMENT. PT DENIES DISCHARGE NEEDS, PT'S SISTER STATES SHE WILL PICK PT UP FOR DISCHARGE HOME. FOR DISCHARGE, FAX DISCHARGE INFORMATION TO [facility] AT [phone]. NURSE REPORT TO BE CALLED TO [facility] AT [phone]. PT'S SISTER TO TRANSPORT PT HOME. Issuer: Poncho Kessler
[2017-04-13 20:00] VITALS: BP 146/57
[2017-04-14] VITALS: BP 156/69
--- NOTE | 2017-04-14 03:25 | NUR ---
PT SITTING ON SIDE OF BED. DENIES ANY NEEDS. NO S/S OF DISTRESS. BED LOW AND CALLLIGHT WITHIN REACH. WILL CPOC
[2017-04-14 05:55] LABS: BASOPHILS 0.4 % (0-2); EOSINOPHILS 0.6 % (0-7); HEMATOCRIT 29.7 % (42.0-54.0); HEMOGLOBIN 9.8 g/dL (13.5-17.5); IMMATURE GRANULOCYTES 3.9 % (0-5); LYMPHOCYTES 15.4 % (15-50); MCH 33.6 pg (26.0-34.0); MCV 101.7 fL (80.0-100.0); MEAN PLATELET VOLUME 10.4 fL (7.4-10.4); MONOCYTES 9.3 % (2-11); NEUTROPHILS 70.4 % (40-80); PLATELET COUNT 230 10x3/uL (130-400); RBC 2.92 10x6/uL (4.20-6.10); RDW 13.1 % (11.5-14.5)
[2017-04-14 06:06] LABS: WBC 7.9 10x3/uL (4.8-10.8)
[2017-04-14 06:07] LABS: ANION GAP 23.9 mmol/L (8-16); CALCIUM 8.5 mg/dL (8.5-10.1); CARBON DIOXIDE 20.9 mmol/L (21.0-32.0); PHOSPHOROUS 8.7 mg/dL (2.5-4.9); POTASSIUM - SERUM 4.8 mmol/L (3.5-5.1); VANCOMYCIN - RANDOM 19.5 ug/mL (10.0-20.0)
[2017-04-14 06:21] LABS: CREATININE - SERUM 12.7 mg/dL (0.6-1.3)
--- NOTE | 2017-04-14 07:30 | NUR ---
REPORT RECIEVED. PT RESTING QUIELTY, RR EVEN AND UNLABORED. APPEARS TO BE RELAXED AND CALM THIS MORNING. INTRODUCED SELF AND PLACED NAME ON WHITE BOARD. ASSESSMENT PERFOMRED. PT DENIES PAIN AND NEEDS AT THIS TIME, WILL CTM.
[2017-04-14 08:00] VITALS: BP 172/79
--- NOTE | 2017-04-14 12:45 | NUR ---
PT DONE WITH DIALYSIS, RESTING QUIETLY, RR EVEN AND UNLABORED. DENIES NEEDS, WILL CTM.
--- NOTE | 2017-04-14 12:46 | NUR ---
Mr. Porter had bedside hemodialysis today via his left lower arm av fistula from 0932 until 1233. Average blood flow was 350 mls/minute. Net fluid remove was only 903 mls due to patient's cramping and yellling from cramping pain.Post vital signs were: B/P: 173/82, Temp: 997,7, Resps:22.
--- NOTE | 2017-04-14 13:47 | NUR ---
Nutrition Follow Up: Pt is eating 67% meal avg on a renal diet. Wt stable. +BM 04/12/17. Labs reviewed. Meds noted including Solu Medrol. Rec continue current diet. Will continue to provide selective menus and honor food preferences within diet ordered. RD following.
[2017-04-14 16:33] VITALS: BP 159/75
--- NOTE | 2017-04-14 18:07 | NUR ---
PT RESTING QUIETLY, RR EVEN AND UNLABORED. DENIES NEEDS AT THIS TIME. WILL GIVE REPORT ON PT CONDITION FOR THE DAY.
--- NOTE | 2017-04-14 19:10 | NUR ---
PT SITTING ON SIDE OF BED. DENIES ANY PAIN OR NEEDS. RESPIRATIONS EVEN AND UNLABORED. NO S/S OF DISTRESS. WILL CPOC
[2017-04-14 20:00] VITALS: BP 154/81
--- NOTE | 2017-04-14 23:57 | NUR ---
PT ASLEEP RESPIRATIONS EVEN AND UNLABORED. WOKE PT TO GIVE HIM HIS LEVOFLOXAIN. PT DENIES ANY NEEDS. NO S/S OF DISTRESS. CALL LIGHT WITHIN REACH WILL CPOC
[2017-04-15] VITALS: BP 139/82
[2017-04-15 04:00] VITALS: BP 140/87
[2017-04-15 06:20] LABS: BASOPHILS 0.4 % (0-2); EOSINOPHILS 1.2 % (0-7); HEMATOCRIT 31.2 % (42.0-54.0); IMMATURE GRANULOCYTES 3.5 % (0-5); LYMPHOCYTES 16.7 % (15-50); MCH 32.9 pg (26.0-34.0); MCHC 32.1 g/dL (31.0-37.0); MCV 102.6 fL (80.0-100.0); MEAN PLATELET VOLUME 10.4 fL (7.4-10.4); NEUTROPHILS 66.2 % (40-80); PLATELET COUNT 236 10x3/uL (130-400); RBC 3.04 10x6/uL (4.20-6.10); RDW 13.3 % (11.5-14.5); WBC 7.7 10x3/uL (4.8-10.8)
[2017-04-15 06:45] LABS: ANION GAP 19.8 mmol/L (8-16); CALCIUM 8.4 mg/dL (8.5-10.1); CARBON DIOXIDE 25.5 mmol/L (21.0-32.0); CREATININE - SERUM 9.7 mg/dL (0.6-1.3); PHOSPHOROUS 7.1 mg/dL (2.5-4.9); POTASSIUM - SERUM 4.3 mmol/L (3.5-5.1)
--- NOTE | 2017-04-15 06:50 | NUR ---
PT RESTING IN BED. DENIES ANY NEEDS. NO S/S OF DISTRESS. WILL CPOC
--- NOTE | 2017-04-15 07:40 | NUR ---
ASSESSMENT COMPLETED.RIGHT UPPER ARM IV. RESERVE LEFT AVF. DIALYSIS TM T W. ON DROPPLET ISLODENIES ANY NEEDS. CALL LIGHT IN REACH WITH SR Cynthia PA.
[2017-04-15] MEDS ORDERED: PROAIR HFA8.5 GM INH (09:30)
[2017-04-15 09:31] VITALS: BP 146/65
[2017-04-15] MEDS ORDERED: LEVAQUIN250 MG PO (09:31)
[2017-04-15] MEDS ORDERED: MEDROL DOSE PACK4 MG PO (09:31)
--- NOTE | 2017-04-15 11:46 | NUR ---
Patient Name: MILLI BOSWELL Encounter No: [id number] : 1960 Primary Insurance: MEDICARE A & B Anticipated DC Date: Planned Disposition: Assisted Living External Planned Provider: [facility] DCP follow-up note: CM RECEIVED DISCHARGE ORDER, MET WITH PT IN ROOM WHO IS IN AGREEMENT WITH DISCHARGE HOME TODAY. IMPORTANT MESSAGE FROM MEDICARE PROVIDED AND EXPLAINED. CM CALLED ELKE REED, , NOTIFIED OF DISCHARGE; ELKE WILL METAL ALLOY SCIENTIST PT AFTER LUNCH FOR TRANSPORT BACK TO [facility] TODAY. CM FAXED DISCHARGE INFORMATION TO [facility] AT [phone]. CM CALLED WISAM AT [facility], , NOTIFIED OF PT'S DISCHARGE AND TRANSPORTATION ARRANGEMENTS. NURSE REPORT TO BE CALLED TO NURSE JOEL AT [facility] AT [phone]. PT'S SISTER TO TRANSPORT PT HOME. Residency Coordinator: Poncho Kessler
--- NOTE | 2017-04-15 15:01 | NUR ---
DISCHARGED. IV DCD WITH TIP INTACT. TO PRIVATE CAR PER WHEELCHAIR
== END 2017-04-15 15:02 | disposition home or self-care (01) | DRG 189 ==
LOC: D.ER 09:25 → OBSVTIME 21:54 → D.WS 21:54 → D.M2 21:55
PROVIDERS: Family Medicine; Internal Medicine Nephrology; ADMIT Internal Medicine Nephrology
PROC: 5A1D60Z (ICD-10-PCS; principal; 2017-04-06)
DX: J96.01 Acute respiratory failure with hypoxia (principal); N18.6 End stage renal disease; J15.0 Pneumonia due to Klebsiella pneumoniae; J44.0 Chronic obstructive pulmonary disease with (acute) lower respiratory infection; J44.1 Chronic obstructive pulmonary disease with (acute) exacerbation; I13.2 Hypertensive heart and chronic kidney disease with heart failure and with stage 5 chronic kidney disease, or end stage renal disease; I50.9 Heart failure, unspecified; Z99.2 Dependence on renal dialysis; G40.909 Epilepsy, unspecified, not intractable, without status epilepticus; E78.5 Hyperlipidemia, unspecified; D63.1 Anemia in chronic kidney disease; Z87.891 Personal history of nicotine dependence; G47.33 Obstructive sleep apnea (adult) (pediatric); I25.10 Atherosclerotic heart disease of native coronary artery without angina pectoris; Z95.5 Presence of coronary angioplasty implant and graft; I69.920 Aphasia following unspecified cerebrovascular disease; I69.991 Dysphagia following unspecified cerebrovascular disease; R13.10 Dysphagia, unspecified

== ENCOUNTER → 2017-05-06 13:04 | Outpatient (CLI) | payer MEDICARE ==
[2017-04-07 10:36] VITALS: BMI 33.1
[~2017-05-06 13:04] MED LIST changes: +LEVAQUIN250 MG PO; +MEDROL DOSE PACK4 MG PO; +PROAIR HFA8.5 GM INH
== END | disposition home or self-care (01) ==
LOC: D.RT 04-13 13:00 → D.CT 04-13 14:00 → D.RT 04-14 13:00
DX: R04.2 Hemoptysis (principal); J44.9 Chronic obstructive pulmonary disease, unspecified

== ENCOUNTER 2017-05-13 22:03 | Emergency (ER) | payer MEDICARE ==
[2017-04-07 10:36] VITALS: BMI 33.1
[2017-05-13 22:33] LABS: BASOPHILS 0.5 % (0-2); EOSINOPHILS 1.8 % (0-7); HEMATOCRIT 26.5 % (42.0-54.0); HEMOGLOBIN 8.2 g/dL (13.5-17.5); IMMATURE GRANULOCYTES 0.3 % (0-5); LYMPHOCYTES 21.9 % (15-50); MCH 31.5 pg (26.0-34.0); MCHC 30.9 g/dL (31.0-37.0); MCV 101.9 fL (80.0-100.0); MONOCYTES 7.7 % (2-11); NEUTROPHILS 67.8 % (40-80); PLATELET COUNT 216 10x3/uL (130-400); WBC 8.7 10x3/uL (4.8-10.8)
[2017-05-13 22:44] LABS: ALBUMIN 3.1 g/dL (3.4-5.0); ALKALINE PHOSPHATASE 104 U/L (46-116); ALT (SGPT) 27 U/L (10-68); CALC OSMOLALITY 298 mosm/kg (275-300); CALCIUM 8.6 mg/dL (8.5-10.1); CARBON DIOXIDE 28.1 mmol/L (21.0-32.0); CHLORIDE - SERUM 105 mmol/L (98-107); CREATININE - SERUM 8.2 mg/dL (0.6-1.3); GLUCOSE 97 mg/dL (74-106); PROTEIN - SERUM 7.3 g/dL (6.4-8.2); SODIUM 143 mmol/L (136-145); UREA NITROGEN 51 mg/dL (7-18); eGFR NON AFRICAN AMERICAN 7 mL/min (90-120)
[2017-05-13 22:51] LABS: CREATINE KINASE 108 UL (21-232); PRO BNP 11759 pg/mL (0-125); TROPONIN-I < 0.017 ng/mL (0.000-0.060)
== END 2017-05-14 00:45 | disposition home or self-care (01) ==
LOC: D.ER 22:03
PROVIDERS: Emergency Medicine
DX: R06.00 Dyspnea, unspecified (principal); I12.0 Hypertensive chronic kidney disease with stage 5 chronic kidney disease or end stage renal disease; N18.6 End stage renal disease; D64.9 Anemia, unspecified

== ENCOUNTER 2017-05-16 18:46 | Inpatient (IN) | payer MEDICARE ==
[2017-05-16 20:37] LABS: BASOPHILS 0.5 % (0-2); EOSINOPHILS 1.8 % (0-7); HEMATOCRIT 27.6 % (42.0-54.0); HEMOGLOBIN 8.4 g/dL (13.5-17.5); IMMATURE GRANULOCYTES 0.2 % (0-5); LYMPHOCYTES 12.1 % (15-50); MCH 31.5 pg (26.0-34.0); MCHC 30.4 g/dL (31.0-37.0); MCV 103.4 fL (80.0-100.0); MEAN PLATELET VOLUME 10.6 fL (7.4-10.4); MONOCYTES 7.8 % (2-11); NEUTROPHILS 77.6 % (40-80); PLATELET COUNT 248 10x3/uL (130-400); RBC 2.67 10x6/uL (4.20-6.10); RDW 17.4 % (11.5-14.5)
[2017-05-16 20:41] LABS: ALBUMIN 3.3 g/dL (3.4-5.0); ALKALINE PHOSPHATASE 121 U/L (46-116); ALT (SGPT) 26 U/L (10-68); BILIRUBIN - TOTAL 0.44 mg/dL (0.2-1.3); CALC OSMOLALITY 297 mosm/kg (275-300); CALCIUM 8.6 mg/dL (8.5-10.1); CARBON DIOXIDE 25.3 mmol/L (21.0-32.0); CHLORIDE - SERUM 102 mmol/L (98-107); CREATININE - SERUM 8.9 mg/dL (0.6-1.3); GLUCOSE 111 mg/dL (74-106); POTASSIUM - SERUM 5.5 mmol/L (3.5-5.1); PROTEIN - SERUM 8.3 g/dL (6.4-8.2); SODIUM 141 mmol/L (136-145); UREA NITROGEN 56 mg/dL (7-18); eGFR NON AFRICAN AMERICAN 7 mL/min (90-120)
[2017-05-16 20:51] LABS: AMYLASE - SERUM 134 U/L (25-115); CREATINE KINASE 168 UL (21-232); LIPASE 480 U/L (73-393); PRO BNP 14601 pg/mL (0-125); THYROID STIMULATING HORMONE 1.33 uIU/mL (0.36-3.74)
[2017-05-16 20:52] LABS: TROPONIN-I < 0.017 ng/mL (0.000-0.060)
--- NOTE | 2017-05-16 22:10 | NUR ---
PATIENT ARRIVED FROM THE ER VIA STRETCHER, SISTER IS AT BEDSIDE. IV IS IN RIGHT HAND SALINE LOCKED. HE IS ALERT AND HAS BEEN ORIENTED TO THE ROOM AND CALL LIGHT
[2017-05-16 22:25] VITALS: BP 193/91
[2017-05-17] VITALS: BP 163/84
[2017-05-17 00:13] VITALS: BMI 33.7
[2017-05-17 04:22] VITALS: BP 177/76
--- NOTE | 2017-05-17 05:17 | NUR ---
PATIENT PULLED IV OUT FROM RIGHT HAND, HELD FIST AT ME IF HE WERE GOING TO HIT ME, SECURITY WAS NOTIFIED. 2X2'S APPLIED TO STOP BLEEDING FROM IV SITE, BEDDING CHANGED AND PATIENT IS RESTING WELL AND IS CALM IN BED NOW. CALL LIGHT IN REACH. REFUSED TO LET ME START ANOTHER IV.
[2017-05-17 07:45] LABS: ANION GAP 18.5 mmol/L (8-16); CALCIUM 8.4 mg/dL (8.5-10.1); CARBON DIOXIDE 23.5 mmol/L (21.0-32.0); CREATININE - SERUM 9.8 mg/dL (0.6-1.3)
[2017-05-17 08:00] VITALS: BP 156/70
--- NOTE | 2017-05-17 08:32 | NUR ---
DO VIDEO SWALLOW FOR ASPIRATION V/O DR. HURT @ 0835 READ BACK & VERIFIED JIMI HICSK/DR. HURT 05/17/17 @ 0835
[2017-05-17 09:43] VITALS: BMI 33.1
[2017-05-17 16:00] VITALS: BP 151/52
--- NOTE | 2017-05-17 16:00 | NUR ---
LETHARGIC. AROUSES TO STIMULI. UNSUCCESSFUL IV RESITE X2 ATTEMPTS. DENIES ANY NEEDS. NO CHANGE. CONTINUE PLAN OF CARE AND SAFETY PRECAUTIONS.
--- NOTE | 2017-05-17 17:37 | NUR ---
ATTEMPTED VASCULAR ACCESS PIV X2 TO R.ARM BOTH GOT FLASH OF BLOOD BUT UPON THREADING IN THEY INFILTRATED. WILL HAVE ANOTHER NURSE TRY.
[2017-05-17 19:13] VITALS: BP 151/53
[2017-05-18] VITALS: BP 159/75
--- NOTE | 2017-05-18 04:26 | NUR ---
PUBLIC SAFETY TELECOMMUNICATOR AT BEDSIDE TO OBTAIN VITALS, CALL LIGHT IN REACH. WILL CONTINUE WITH PLAN OF CARE.
[2017-05-18 04:28] VITALS: BP 148/65
[2017-05-18 05:28] LABS: CALCIUM 8.3 mg/dL (8.5-10.1)
[2017-05-18 05:30] LABS: BASOPHILS 1.6 % (0-2); EOSINOPHILS 3.8 % (0-7); HEMATOCRIT 20.8 % (42.0-54.0); IMMATURE GRANULOCYTES 0.3 % (0-5); LYMPHOCYTES 19.1 % (15-50); MCHC 30.3 g/dL (31.0-37.0); MCV 102.5 fL (80.0-100.0); MEAN PLATELET VOLUME 10.3 fL (7.4-10.4); MONOCYTES 12.1 % (2-11); NEUTROPHILS 63.1 % (40-80); RBC 2.03 10x6/uL (4.20-6.10); RDW 17.1 % (11.5-14.5)
[2017-05-18 05:34] LABS: CARBON DIOXIDE 30.2 mmol/L (21.0-32.0); CREATININE - SERUM 7.3 mg/dL (0.6-1.3); POTASSIUM - SERUM 4.2 mmol/L (3.5-5.1)
[2017-05-18 05:36] LABS: WBC 3.7 10x3/uL (4.8-10.8)
[2017-05-18 05:38] LABS: HEMOGLOBIN 6.3 g/dL (13.5-17.5); PLATELET COUNT 161 10x3/uL (130-400)
--- NOTE | 2017-05-18 06:21 | NUR ---
CRITICAL HGB OF 6.3 THIS MORNING, PER DR BRADSHAW WILL ORDER TYPE AND CROSS TO INFUSE 2 UNITS OF PRBs. CONSENT OBTAINED FROM PATIENT AND WITNESSED. CALL LIGHT IN REACH.
--- NOTE | 2017-05-18 07:54 | HP ---
PATIENT: MILLI BOSWELL MEDICAL RECORD: [id number] ACCOUNT: [id number] LOCATION:. D.2104 : [birth year] ADMISSION DATE: 05/17/17 HISTORY AND PHYSICAL EXAMINATION DATE OF ADMISSION: 05/16/2017 REASON FOR ADMISSION: 1. Pulmonary edema with hypoxia. 2. Hyperkalemia. 3. Weakness. HISTORY OF PRESENT ILLNESS: This is a 57-year-old gentleman with ESRD, dialyzing in [place]. He has had chest congestion, was prescribed Levaquin and several cough medications and continued to have shortness of breath, hypoxia, hyperkalemia, and lower extremity weakness on admission. REVIEW OF SYSTEMS: A little difficult to obtain this evening, but no chest pain, nausea or vomiting, just the above symptoms, all the rest review of systems are negative. PAST MEDICAL HISTORY: 1. End-stage renal disease, on dialysis 3 days a week. 2. Seizure disorder. 3. Hyperkalemia. 4. Pulmonary edema with difficulty with fluid restriction. 5. Anemia of CKD. 6. Hyperphosphatemia. 7. Hyperlipidemia. 8. Hypertension. PAST SURGICAL HISTORY: Dialysis access placement. ALLERGIES: NKDA. HOME MEDICATIONS: Extensive and do include Levaquin 250 a day, ProAir inhaler p.r.n., Plavix 75 a day, aspirin 81 a day, hydralazine 25 b.i.d., lisinopril 40 a day, metoprolol 40 twice a day, pravastatin 40 a day, clonidine 0.1 p.r.n., Tegretol 200 in the morning and 300 in the evening, Keppra 1000 b.i.d., Ultram 50 mg p.r.n. pain, Atarax 25 p.r.n. itching t.i.d., Renvela 3200 mg with meals, Lasix 20 mg on nondialysis days, Colace 100 mg twice a day p.r.n., Zofran 4 mg p.r.n. nausea and vomiting, methylprednisone Dosepak. FAMILY HISTORY: No history of renal disease. SOCIAL HISTORY: No reported tobacco, alcohol or illicit drugs. PHYSICAL EXAMINATION: VITAL SIGNS: Blood pressure 193/91, 109 pulse, 97.9 temperature. GENERAL: He is resting, in no obvious respiratory distress at this time. Clear nares except for nasal cannula O2. NECK: Positive JVD. CHEST: Regular rhythm, tachy rate, occasional irregular beat. LUNGS: Have decreased breath sounds. ABDOMEN: Nontender in all 4 quadrants. HISTORY AND PHYSICAL [id number] ELBERTMILLI EXTREMITIES: Positive lower extremity edema. NEUROLOGIC: This was in the evening and he was not it for neurological exam and had to arouse him from his sleep. SKIN: No urticarial rash. Dialysis access without any drainage. LABORATORY DATA: H&H is 8.4/27, white count 11,000. Potassium 5.5, BUN 56, creatinine 8.9, calcium 8.6. AST and ALT are normal. Albumin 3.3. Amylase 134, lipase 480. TSH 1.3. Tegretol level 7. ASSESSMENT AND PLAN: 1. Pulmonary edema. He has been on Levaquin, does have upper respiratory infection. We will treat him for walking pneumonia. He has been on Levaquin. We will continue with Rocephin. 2. Hyperkalemia. We will need dialysis, gave him Kayexalate during the evening and dialysis in the a.m. 3. Anemia of chronic kidney disease with increased MCV. We will follow his hematocrit. 4. Hypertension, on multiple medications, which we will restart as listed in his medication list. 5. Mild pancreatitis. His lipase is only 480 and he is not having any symptoms of nausea, vomiting or abdominal pain, but we will check in the morning to make sure. 6. Seizure disorder, on current medications, Keppra and Tegretol. 7. Coronary arteriosclerosis, he is on Plavix and aspirin. PLAN: 1. Please see orders. 2. Dialysis in a.m. 3. Kayexalate. 4. Levaquin and Rocephin. TRANSINT:[id number] Voice Confirmation ID: [id number] DOCUMENT ID: [id number] GLADIS AGEE MD at 0754 CC: [id number] DICTATION DATE: 05/17/17709 VOCATIONAL COUNSELOR: 05/17/17 0929 ADM IN [place] [address] [place] [address]
[2017-05-18 07:58] VITALS: BP 159/74
[2017-05-18 11:16] VITALS: BP 140/54
[2017-05-18 15:26] LABS: HEPATITIS C ANTIBODY <0.1 (0.0-0.9)
--- NOTE | 2017-05-18 15:35 | NUR ---
Dialysis Coordinator: EV Bolden Dailysis Wed/Wed/Wed @ 11:00. LINN TAYLOR.
[2017-05-18 15:41] VITALS: BP 129/75
--- NOTE | 2017-05-18 16:39 | NUR ---
OT NOTE: PT COMPLETED SIMPLE SELF CARE TASKS WITH SBA/CGA. PT COMPLETED BED MOB WITH SBA. THANK YOU, SUIN TSAI/Maximilian
--- NOTE | 2017-05-18 18:05 | NUR ---
ALERT AND ORIENTED X4. RESTING IN BED. NO STOOL COLLECTED DUE TO PATIENT NOT BEING INFORMED OF ORDER. ENCOURAGE PATIENT TO NOTIFY STAFF WHEN NEEDED TO HAVE BOWEL MOVEMENT. DENIES SOB OR PAIN. DENIES ANY NEEDS. SINUS RHTHYM ON TELEMETRY. CONTINUE PLAN OF CARE. BED LOCKED AND LOW. CALL LIGHT IN REACH. TWO SIDERAILS UP.
[2017-05-18 19:00] VITALS: BP 156/70
--- NOTE | 2017-05-18 19:24 | NUR ---
PT IN BED RECIEVING BREATHING TREATMENT. PT IS NONVERBAL BUT SHOOK HIS HEAD NO WHEN ASKED IF HE NEEDED ANYTHING.
[2017-05-19] VITALS (7 sets, daily range): BP systolic 140–196; BP diastolic 68–80
--- NOTE | 2017-05-19 05:11 | NUR ---
RECOVERY COLLECTOR IN PTS ROOM GIVING BATH. PT IN NO ACUTE DISTRESS. CONTINUE TO MONITOR CLOSELY.
[2017-05-19 06:33] LABS: ANION GAP 14.9 mmol/L (8-16); CALCIUM 8.1 mg/dL (8.5-10.1); CARBON DIOXIDE 25.3 mmol/L (21.0-32.0); PHOSPHOROUS 7.3 mg/dL (2.5-4.9); POTASSIUM - SERUM 4.2 mmol/L (3.5-5.1)
[2017-05-19 06:37] LABS: CREATININE - SERUM 9.2 mg/dL (0.6-1.3)
[2017-05-19 06:42] LABS: BASOPHILS 1.1 % (0-2); EOSINOPHILS 4.7 % (0-7); HEMATOCRIT 22.3 % (42.0-54.0); IMMATURE GRANULOCYTES 0.3 % (0-5); LYMPHOCYTES 21.4 % (15-50); MCH 32.1 pg (26.0-34.0); MCHC 31.4 g/dL (31.0-37.0); MCV 102.3 fL (80.0-100.0); MEAN PLATELET VOLUME 10.4 fL (7.4-10.4); MONOCYTES 12.9 % (2-11); NEUTROPHILS 59.6 % (40-80); PLATELET COUNT 183 10x3/uL (130-400); RBC 2.18 10x6/uL (4.20-6.10); RDW 16.8 % (11.5-14.5); WBC 3.8 10x3/uL (4.8-10.8)
--- NOTE | 2017-05-19 14:30 | NUR ---
ARRIVE BACK TO ROOM VIA WHEELCHAIR FROM DIALYSIS. ALERT AND ORIENTED X4. REFUSE PHYSICAL THERAPY CONSULT. DENIES ANY NEEDS. NO BOWEL MOVEMENT. CONTINUE PLAN OF CARE. BED LOCKED AND LOW. CALL LIGHT IN REACH. TWO SIDERAILS UP. SINUS RHTHYM 76bpm ON TELEMETRY. REFUSE SCDs.
--- NOTE | 2017-05-19 15:13 | NUR ---
Patient Name: MILLI BOSWELL Admission Status: ER Accout number: [id number] Admission Date: 05-17-2017 : 1960 Admission Diagnosis:HYPERKALEMIA Attending: Clyde Sampson Current LOS: 2 Anticipated DC Date: Planned Disposition: Assisted Living Primary Insurance: MEDICARE A & B PLANNED EXTERNAL PROVIDER: [facility] Discharge Planning Comments: * Is the patient Alert and Oriented? Yes 0 * How many steps to enter\exit or inside your home? NONE 0 * PCP DR. MARTELL IN [place] 0 * Pharmacy [facility] IN [place] 0 * Preadmission Environment Assisted Living 0 * Facility Name [facility] IN [place], 0 * ADLs Partial Dependent 0 * Partial ADLs (Assistance needed) Medication Management 0 * Equipment None 0 * Other Equipment NONE 0 * List name and contact numbers for known caregivers / representatives who currently or will assist patient after discharge: ELKE REED, SISTER, 0 * Community resources currently utilized Assisted Living Other 0 * Please name any agencies selected above. [facility], [place] [facility], M/W/F, 7958, [facility] 0 * Additional services required to return to the preadmission environment? No 0 * Can the patient safely return to the preadmission environment? Yes 0 * Has this patient been hospitalized within the prior 30 days at any hospital? Yes 0 CM RECEIVED ORDER FOR REHAB. CM MET WITH PT IN ROOM TO DISCUSS DISCHARGE PLANNING AND NEEDS. PT HAS TROUBLE WITH VERBAL COMMUNICATION, NODS, ANSWERS IN GESTURES AND YES AND NO. PT REPORTS LIVING AT [facility] IN [place], ASSISTED LIVING. PT HAS ASSISTANCE WITH ASSIST WITH MEAL PREPARATION, MEDICATIONS AND TRANSPORATION SERVICES. PT HAS NO MEDICAL EQUIPMENT AND NO OUTSIDE SERVICES ASSISTING IN THE HOME. PT GOES TO DIALYSIS IN [place] ON MWF SCHEDULE, [facility] CM DISCUSSED AVAILABILITY OF HOME HEALTH, REHAB SERVICES AND MEDICAL EQUIPMENT. WHEN REHAB WAS MENTIONED, PT REPORTED NO, NO. CM DISCUSSED REHAB OPTIONS OF INPATIENT, SKILLED OR HOME HEALTH. PT REPORTS NO WHEN ASKED IF HE WILL GO TO REHAB. PT INDICATES HE CAN GET UP AND WALK. PT REPORTS YES WHEN ASKED IF HE WANTS TO GO HOME. PT DENIES DISCHARGE NEEDS, PT INDICATES HIS SISTER WILL PICK HIM UP FOR DISCHARGE HOME. CM WILL FOLLOW AND REVIEW PHYSICAL THERAPY NOTE ONCE THE EVALUATION IS COMPLETED. CM SPOKE TO OLEGARIO OF INPATIENT REHAB WHO WILL SPEAK TO PT REGARDING INPATIENT REHAB SERVICES. PT DECLINING REHAB SERVCES, REPORTS PLAN TO GO BACK TO ASSISTED LIVING. FOR DISCHARGE, FAX DISCHARGE INFORMATION TO [facility] AT [phone]. NURSE REPORT TO BE CALLED TO [facility] AT [phone]. PT'S SISTER TO TRANSPORT PT HOME. Podiatric Medicine Doctor: Poncho Kessler
--- NOTE | 2017-05-19 15:28 | NUR ---
Rehab Note-Acute Rehab Prescreen order received. Visited with the patient. Would nod head and stated "No" loudly with hand gestures when asked about acute inpatient rehab. Verbalized this to NORBERT Diaz who stated that the patient wants to go back to [facility] where he resides when discharged from the acute hospital. Thank you for this referral! Vanda Sharma RN Clinical Liaison, [facility] Rehab
--- NOTE | 2017-05-19 17:25 | NUR ---
OT NOTE: PT COMPLETED BED MOB AND EOB SITTING WITH SBA. PT COMPLETED BUE STRENGTHENING EXERCISES . THANK YOU, SUNI TSAI/Maximilian
--- NOTE | 2017-05-19 19:48 | NUR ---
PT IS SITTING IN BED WITH TELEVISION ON, WHEN ASKED IF ANY NEEDS PT SHOOK HIS HEAD NO, BED IN LOW POSITION, CALL LIGHT IN REACH, CONTINUE WITH CARE PLAN
--- NOTE | 2017-05-19 20:15 | NUR ---
PT CALL LIGHT WAS ON, WHEN ANSWERED PT POINTED TO BATHROOM, PT WAS ABLE TO DEFECATE, COLLECTED STOOL SAMPLE AND SENT TO LAB FOR PROCESSING. BED IN LOW POSITION, CALL LIGHT WITHIN REACH CONTINUE TO MONITOR
--- NOTE | 2017-05-20 02:07 | NUR ---
CALL LIGHT IN REACH, WILL CONTINUE WITH PLAN OF CARE.
[2017-05-20 04:00] VITALS: BP 180/84
--- NOTE | 2017-05-20 04:16 | NUR ---
PT LYING IN BED, EYES CLOSED, NO SIGNS OF DISTRESS, CONTINUE WITH PLAN OF CARE
[2017-05-20 04:25] LABS: EOSINOPHILS 3.9 % (0-7); HEMOGLOBIN 9.2 g/dL (13.5-17.5); IMMATURE GRANULOCYTES 0.4 % (0-5); LYMPHOCYTES 21.1 % (15-50); MCH 31.4 pg (26.0-34.0); MCHC 32.9 g/dL (31.0-37.0); MCV 95.6 fL (80.0-100.0); MEAN PLATELET VOLUME 10.2 fL (7.4-10.4); MONOCYTES 10.1 % (2-11); NEUTROPHILS 63.5 % (40-80); PLATELET COUNT 177 10x3/uL (130-400); RBC 2.93 10x6/uL (4.20-6.10); RDW 18.4 % (11.5-14.5); WBC 5.1 10x3/uL (4.8-10.8)
[2017-05-20 05:03] LABS: ANION GAP 18.9 mmol/L (8-16); CALCIUM 8.4 mg/dL (8.5-10.1); CARBON DIOXIDE 23.7 mmol/L (21.0-32.0); CREATININE - SERUM 7.4 mg/dL (0.6-1.3); PHOSPHOROUS 5.4 mg/dL (2.5-4.9); POTASSIUM - SERUM 3.6 mmol/L (3.5-5.1)
--- NOTE | 2017-05-20 07:15 | NUR ---
RECIEVED REPORT ON PATIENT, PATIENT IS ALERT AND ORIENTED AT THIS TIME. PATIENT IS SR ON MONITOR WITH A RATE OF 96 AT THIS TIME. PATIENT DENIES ANY PAIN OR NEEDS, BED IS LOW AND LOCKED. CPOC
[2017-05-20 08:00] VITALS: BP 164/59
--- NOTE | 2017-05-20 09:30 | NUR ---
MORNING MEDICATIONS GIVEN, ASSESSMENT DONE. PATIENT DENIES ANY FURTHER NEEDS AT THIS TIME. CPOC
[2017-05-20 12:00] VITALS: BP 141/54
--- NOTE | 2017-05-20 12:37 | NUR ---
Patient Name: MILLI BOSWELL Encounter No: [id number] : 1960 Primary Insurance: MEDICARE A & B Anticipated DC Date: 05-20-2017 Planned Disposition: Assisted Living External Planned Provider: [facility] IN [place] DCP follow-up note: CM RECEIVED DISCHARGE ORDER [facility] HOME HEALTH ORDER, MET WITH PT IN ROOM, DISCUSSED DISCHARGE HOME TODAY WITH HOME HEALTH, PT AGREEABLE, HAS NO PREFERENCE ON PROVIDER FOR SPEECH THERAPY, CHOICE LETTER SIGNED. PT ASKED CM TO CALL HIS SISTER FOR TRANSPORTATION HOME. CM SPOKE TO PERFORMANCE MANAGER NURSE WHO HAS PROVIDED REPORT TO THE NURSE AT [facility]. CM CALLED [facility], , SPOKE TO LACEY WHO INFORMED CM HAVING NO AVAILABILITY OF SPEECH THERAPY FOR WEEKS. CM CALLED [facility], , SPOKE TO [place] WHO REPORTS AVAILABLE THERAPIST FOR SPEECH / SWALLOWING TOMORROW; CM PROVIDED REFERRAL TO [place], FAXED REFERRAL AND DISCHARGE INFORMATION TO [facility] AT [phone]. CM CALLED PTS' SISTER, ELKE REED, , WHO IS ON THE WAY FROM [place] AND WILL INTERVENTION MANAGER PT FOR TRANSPORT BACK TO [facility]. PT NOTIFIED WHO DENIES FURTHER DISCHARGE NEEDS. CM FAXED DISCHARGE INFORMATION TO [facility] AT [phone]. Poncho Kessler, CASE MANAGEMENT
--- NOTE | 2017-05-20 13:46 | NUR ---
PATIENT SISTER HERE FOR TRANSPORT TO INTERMEDIATE. DENIES ANY NEEDS. DC PAPERWORK SIGNED.
--- NOTE | 2017-05-20 13:51 | NUR ---
REPORT CALLED TO WISAM [facility], DENIES ANY FURTER QUESTIONS.
--- NOTE | 2017-05-24 07:14 | DS ---
PATIENT:MILLI BOSWELL :[birth year] MEDICAL RECORD: [id number] DISCHARGE SUMMARY ADMISSION DATE: 05/17/17 DISCHARGE DATE: 05/20/17 HISTORY OF PRESENT ILLNESS: Mr. Boswell is a 57-year-old white male, who has end-stage renal disease, on chronic dialysis, recurrent admissions for shortness of breath and has had bedside swallowing eval in the past that did not reveal significant aspiration. He now was admitted with another episode of shortness of breath and found to be anemic. HOSPITAL COURSE: The patient had a video swallow done that did reveal aspiration that was improved with chin tuck and we will continue chin tuck maneuvers and thick [facility] the jail. He did require transfusion and increasing his Epogen. Stools for blood were pending. He did receive transfusion times 1. His chest x-ray was clear and underwent acute dialysis without difficulty. He declined rehab admission for his continued swallowing issues. I did not broach the issues about a PEG tube at this time, but he may require that in the future. At the time of discharge, he was essentially stable. DISCHARGE DIAGNOSES: 1. Recurrent aspiration, recurrent shortness of breath improved with chin tuck and thick liquids. 2. End-stage renal disease. 3. History of recurrent cerebrovascular accident, now mute. 4. Chronic anemia. 5. Chronic dialysis. PLAN: The patient will be discharged today. He will have OT at the jail. He will resume his dialysis in [place]. We will see him weekly. He will employ chin tuck maneuvers and thick liquids at the jail. He will resume all of his discharge current medications. TRANSINT:[id number] Voice Confirmation ID: [id number] DOCUMENT ID: [id number] DEBO HURT MD at 0714 CC: [id number] DICTATION DATE: 05/20/1742 SPECIAL EDUCATOR: 05/20/17 0840 DIS IN 05/20/17 [place] [id number] [place] [id number]
== END 2017-05-20 13:52 | disposition home or self-care (01) | DRG 205 ==
LOC: D.ER 18:46 → D.M2 21:32 → OBSVTIME 21:32 → D.M2 05-17 13:55
PROVIDERS: Family Medicine; Internal Medicine Nephrology; ADMIT Internal Medicine Nephrology
PROC: 5A1D70Z Performance of Urinary Filtration, Intermittent, Less than 6 Hours Per Day (ICD-10-PCS; principal; 2017-05-17)
DX: T17.900A Unspecified foreign body in respiratory tract, part unspecified causing asphyxiation, initial encounter (principal); N18.6 End stage renal disease; K85.90 Acute pancreatitis without necrosis or infection, unspecified; J18.8 Other pneumonia, unspecified organism; J81.1 Chronic pulmonary edema; I12.0 Hypertensive chronic kidney disease with stage 5 chronic kidney disease or end stage renal disease; E87.5 Hyperkalemia; Z99.2 Dependence on renal dialysis; D63.1 Anemia in chronic kidney disease; G40.909 Epilepsy, unspecified, not intractable, without status epilepticus; E78.5 Hyperlipidemia, unspecified; I25.10 Atherosclerotic heart disease of native coronary artery without angina pectoris; Z86.73 Personal history of transient ischemic attack (TIA), and cerebral infarction without residual deficits

== ENCOUNTER 2017-07-11 21:29 | Inpatient (IN) | payer MEDICARE ==
[~2017-07-11] VITALS: Ht 177.8 cm; Wt 104.3 kg
[2017-07-11 21:56] LABS: BASOPHILS 0.4 % (0-2); EOSINOPHILS 2.7 % (0-7); HEMATOCRIT 40.4 % (42.0-54.0); HEMOGLOBIN 12.7 g/dL (13.5-17.5); IMMATURE GRANULOCYTES 0.2 % (0-5); LYMPHOCYTES 28.3 % (15-50); MCH 33.6 pg (26.0-34.0); MCHC 31.4 g/dL (31.0-37.0); MCV 106.9 fL (80.0-100.0); MEAN PLATELET VOLUME 11.3 fL (7.4-10.4); MONOCYTES 9.7 % (2-11); NEUTROPHILS 58.7 % (40-80); RBC 3.78 10x6/uL (4.20-6.10); RDW 16.8 % (11.5-14.5); WBC 9.4 10x3/uL (4.8-10.8)
[2017-07-11 22:14] LABS: PLATELET COUNT 243 10x3/uL (130-400)
[2017-07-11 22:48] LABS: ALBUMIN 3.7 g/dL (3.4-5.0); ANION GAP 23.5 mmol/L (8-16); BILIRUBIN - TOTAL 0.6 mg/dL (0.2-1.3); CALCIUM 8.4 mg/dL (8.5-10.1); CARBON DIOXIDE 21.1 mmol/L (21.0-32.0); CREATININE - SERUM 11.9 mg/dL (0.6-1.3); PROTEIN - SERUM 8.4 g/dL (6.4-8.2)
[2017-07-11 22:51] LABS: POTASSIUM - SERUM 6.6 mmol/L (3.5-5.1)
[2017-07-12 01:31] VITALS: BP 196/833; BMI 33.0
[2017-07-12] MEDS ORDERED: CLARITIN 10 MG10 MG PO (02:28)
[2017-07-12 04:00] VITALS: BP 161/82
[2017-07-12 05:08] LABS: BASOPHILS 0.3 % (0-2); EOSINOPHILS 0 % (0-7); IMMATURE GRANULOCYTES 0.3 % (0-5); LYMPHOCYTES 14.4 % (15-50); MCH 33.6 pg (26.0-34.0); MCHC 31.9 g/dL (31.0-37.0); MCV 105.3 fL (80.0-100.0); MEAN PLATELET VOLUME 10.2 fL (7.4-10.4); MONOCYTES 2.9 % (2-11); NEUTROPHILS 82.1 % (40-80); RDW 16.5 % (11.5-14.5)
[2017-07-12 05:09] LABS: HEMATOCRIT 31.7 % (42.0-54.0); HEMOGLOBIN 10.1 g/dL (13.5-17.5); PLATELET COUNT 149 10x3/uL (130-400); RBC 3.01 10x6/uL (4.20-6.10); WBC 3.4 10x3/uL (4.8-10.8)
[2017-07-12 05:31] LABS: ANION GAP 21.6 mmol/L (8-16); CALCIUM 8.1 mg/dL (8.5-10.1); CARBON DIOXIDE 23.5 mmol/L (21.0-32.0); CREATININE - SERUM 12.4 mg/dL (0.6-1.3); MAGNESIUM - SERUM 2.4 mg/dL (1.8-2.4); PHOSPHOROUS 7.1 mg/dL (2.5-4.9)
[2017-07-12 05:32] LABS: POTASSIUM - SERUM 6.1 mmol/L (3.5-5.1)
--- NOTE | 2017-07-12 07:18 | NUR ---
AM ROUNDS- PT IN BED, WITH EYES CLOSE, AWAKEN EASILY TO VOICE. RESP EVEN AND UNLABORED. PT DENIES ANY NEEDS AT THIS TIME, CALL LIGHT IN REACH, NAD NOTED, WILL CONTINUE PLAN OF CARE.
[2017-07-12 08:27] VITALS: BP 162/83
--- NOTE | 2017-07-12 08:46 | NUR ---
ADMINISTERED LASIX ORDERED, PT ASKING WHEN HE WILL GET HIS MEDS. INFOMRED PT THAT THE DOCTOR HAS TO REVIEW THEM FIRST TO SEE WHICH MEDS HE WANTS PT TO TAKE. PT A LITTLE FRUSTRATED BECAUSE HE WANTS HIS HOME MEDS AND ALSO BECAUSE HE HAS A HARD TIME COMMUNICATING. PT DENIES ANY NEEDS AT THIS TIME. CALL LIGHT IN REACH, NAD NOTED.
[2017-07-12 11:00] VITALS: Ht 177.8 cm; Wt 104.3 kg
[2017-07-12 11:57] VITALS: BP 171/80
--- NOTE | 2017-07-12 12:22 | NUR ---
PAGEMitali MURRAY RENAL MERCHANDISE HANDLER, WAITING SOCIOLOGY INSTRUCTOR BACK.
--- NOTE | 2017-07-12 12:22 | NUR ---
PAGED RAISA LEGGETT RENAL HEAD WAITRESS, WAITING VALVE FITTER BACK.
--- NOTE | 2017-07-12 12:39 | NUR ---
Is the patient Alert and Oriented? Yes 0 * How many steps to enter\exit or inside your home? none 0 * PCP DR Saenz 0 * Pharmacy [facility] [place] 0 * Preadmission Environment Assisted Living 0 * Facility Name [facility] 0 * ADLs Independent 0 * Equipment None 0 * Other Equipment N/A 0 * List name and contact numbers for known caregivers / representatives who currently or will assist patient after discharge: Lainey Patterson- [facility]- [phone] 0 * Community resources currently utilized None 0 * Please name any agencies selected above. n/a 0 * Additional services required to return to the preadmission environment? No 0 * Can the patient safely return to the preadmission environment? Yes 0 * Has this patient been hospitalized within the prior 30 days at any hospital? No 0 Grand Total: 0
--- NOTE | 2017-07-12 12:45 | NUR ---
CM met with the patient at his bedside. Has ESRD, HX CVA, Recurrent Aspiration and Mutism per MD note. Admitted w/ hyperkalemia and shortness of breath. Plan HD this AM. He is anxiously awaiting HD. He indicated he wants to know when he will be going to dialyze. CM spoke with his primary nurse, Izabella. She does not have a definite time. She has called and they stated it would be on second shift. CM told the patient. Patient is alert and oriented. He shakes his head yes/ no to questions. Attempts to form some words. Answered questions appropriately. Lives in assisted living at the [facility] in [place], [place]. Contact phone number- [phone] He is not receiving any home health services. Is fairly independent in his care. PCP- DR Saenz Lean Leader- Dedra Díaz- he could not give CM the name Pharmacy- [facility] [place] [facility] [facility] [phone]- M/W/F at 1045 DME- denies any DME- is wearing oxygen but does not have O2 at home Has had home health services with [facility] previously. TC to [facility]. Patient was discharged from services on 06/13/17. TC to [place] [facility]. Spoke with Froilan. Advised of admission. Confirmed HD treatment days and time. His sister, Lainey Patterson, will provide transportation to home. Contact phome number [phone]. Patient denies any needs at this time. CM to follow to assist as is appropriate.
--- NOTE | 2017-07-12 13:13 | NUR ---
PAGED ELIANA MURRAY, WAITING TURRET PUNCH OPERATOR BACK.
--- NOTE | 2017-07-12 13:56 | NUR ---
LEFT A VOICEMAIL WITH 'S NURSE, WAITING DEHYDRATION PLANT OPERATOR BACK.
--- NOTE | 2017-07-12 16:30 | NUR ---
PT TRANSFERED TO DIALYSIS VIA WHEELCHAIR, SISTER IN ROOM, INFORMED HER ABOUT CARE OF PLAN AND ABOUT NOTIFING DOCTOR TO START HOME MEDS.
--- NOTE | 2017-07-12 19:30 | NUR ---
ROUNDING NOTE: PT IS APHASIC/NONVERBAL, ALERT, AWAKE, ORIENTED X3, ABLE TO ANSWER YES AND NO QUESTIONS EASILY AND STILL MAKE HIS NEEDS KNOWN. HE DOES GET FRUSTRATED EASILY WHEN HE CANNOT GET HIS WORDS OUT DUE TO HIS OLD CVA. PT HAS LEFT HAND SALINE LOC AND HE IS WEARING OXYGEN VIA NC AT 4L. WILL CONT TO MONITOR.
[2017-07-12 20:33] VITALS: BP 131/87
--- NOTE | 2017-07-12 20:45 | NUR ---
PT IS CONCENRED ABOUT HIS MEDICATIONS, PARTICULARLY HIS SEIZURE MEDS BECAUSE HE MISSED HIS AM DOSES B/C THEY WEREN'T ORDERED UNTIL LATER TODAY SO THE FIRST DOSE WAS DUE AT 2100. I ALSO RECEIVED A CALL FROM PT'S SISTER WITH THE SAME CONCERNS. I EXPLAINED THE MD DID NOT ORDER HIS HOME MEDS TO BE STARTED UNTIL 2100 TONIGHT, SO I WAS JUST FOLLOWING THE DOCTOR'S ORDERS, BUT I WOULD BE GOING IN TO GIVE THEM SHORTLY. PT AND SISTER UNDERSTAND AND ARE IN AGREEMENT WITH THIS PLAN. NO OTHER NEEDS OR QUESTIONS AT THIS TIME.
[2017-07-13 03:47] VITALS: BP 154/89
[2017-07-13 04:37] LABS: BASOPHILS 0.5 % (0-2); EOSINOPHILS 2.8 % (0-7); HEMATOCRIT 31.4 % (42.0-54.0); HEMOGLOBIN 9.9 g/dL (13.5-17.5); LYMPHOCYTES 11.4 % (15-50); MCH 33.2 pg (26.0-34.0); MCHC 31.5 g/dL (31.0-37.0); MCV 105.4 fL (80.0-100.0); MEAN PLATELET VOLUME 11.1 fL (7.4-10.4); MONOCYTES 16.6 % (2-11); NEUTROPHILS 68.7 % (40-80); PLATELET COUNT 146 10x3/uL (130-400); RBC 2.98 10x6/uL (4.20-6.10); RDW 16.8 % (11.5-14.5); WBC 4.2 10x3/uL (4.8-10.8)
[2017-07-13 04:53] LABS: ANION GAP 17.5 mmol/L (8-16); CALCIUM 7.9 mg/dL (8.5-10.1); CARBON DIOXIDE 26.5 mmol/L (21.0-32.0); CREATININE - SERUM 10.2 mg/dL (0.6-1.3); MAGNESIUM - SERUM 2.2 mg/dL (1.8-2.4); PHOSPHOROUS 7.6 mg/dL (2.5-4.9)
--- NOTE | 2017-07-13 07:15 | NUR ---
RECIEVED REPORT ON PATIENT, PATIENT IS ALERT AND ORIENTED AT THIS TIME. PATIENT HAS A R THUMB IV THAT IS SL. PATIENT IS APHASIC AND CAN ANSWER YES AND NO QUESTIONS. SR ON MONITOR WITH A RATE OF 83. PATIENT DENIES ANY NEEDS OR PAIN. WILL CONT TO MONITOR. CPOC
[2017-07-13 08:00] VITALS: BP 162/80
--- NOTE | 2017-07-13 09:00 | NUR ---
MORNING MEDICATIONS GIVEN. PATIENT DENIES ANY NEEDS. CPOC
--- NOTE | 2017-07-13 10:16 | NUR ---
Patient Name: MLILI BOSWELL Encounter No: [id number] : 1960 Primary Insurance: MEDICARE A & B Anticipated DC Date: 07-13-2017 Planned Disposition: Assisted Living External Planned Provider: [facility] DCP follow-up note: CM RECEIVED DISCHARGE AND OXYGEN ORDER. OXYGEN TESTING RECEIVED, PT 88% ON ROOM AIR AT REST. CM SPOKE TO PT IN ROOM WHO HAS NO PREFERENCE ON PROVIDER. NORBERT CALLED PT'S SISTER, LEKE REED, , WHO REPORTS SHE WILL ASTROCHEMIST PT TODAY AT [place] FOR TRANSPORT HOME TO ASSISTED LIVING AT [facility]. PT DOES NOT HAVE HOME HEALTH NOW, ELKE ASKED TO CALL [facility] FOR DIRECTION ON WHICH COMPANY TO USE TO PROVIDE PT'S OXYGEN. CM CALLED [facility], , SPOKE TO WISAM WHO REPORTS PT TO HAVE A HOME CONCENTRATOR AND CPAP FROM [facility] PATIENT. PT NO LONGER HAS HOME HEALTH HE WAS NON COMPLIANT. NORBERT CALLED [facility] AT [phone], SPOKE TO CATRACHITA WHO WILL PROCESS ORDER FOR HOSPITAL DELIVERY OF PORTABLE OXYGEN. CM FAXED ORDERS TO [facility] AT [phone]. CM FAXED DISCHARGE INFORMATION TO [facility] AT [phone]. [facility] TO DELIVER PORTABLE OXYGEN TO PT'S ROOM FOR DISCHARGE HOME TODAY. PT'S SISTER TO ASTROCHEMIST AT [place] TODAY. NURSE REPORT TO BE CALLED TO WISAM AT [facility] AT [phone]. Poncho Kessler, CASE MANAGEMENT
--- NOTE | 2017-07-13 10:34 | NUR ---
REPORT GIVEN TO WISAM AT [facility]. CPOC
[2017-07-13 12:00] VITALS: BP 141/74
--- NOTE | 2017-07-13 12:34 | NUR ---
IV DC WITH CATH TIP INTACT. PATIENT WAITING ON SISTER FOR RIDE. CPOC
--- NOTE | 2017-07-13 14:25 | NUR ---
PATIENT O2 DELIVERED. DC INSTRUCTIONS GIVEN TO FAMILY. DENIES ANY QUESTIONS. PATIENT READY FOR DC
--- NOTE | 2017-07-15 07:01 | DS ---
PATIENT:MILLI BOSWELL :[birth year] MEDICAL RECORD: [id number] DISCHARGE SUMMARY ADMISSION DATE: 07/11/17 DISCHARGE DATE: 07/13/17 HISTORY OF PRESENT ILLNESS: Mr. Boswell is a 57-year-old white male, who has end-stage renal disease. 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 Current history dates to the onset of shortness of breath the p.m. prior to dialysis. Found in the Emergency Room to have CHF on volume overload on chest x-ray and hyperkalemia. HOSPITAL COURSE: The patient was restarted on his home medications and oxygen, underwent acute dialysis without difficulty and had approximately 2-1/2 liters removed. Following that, he was back to baseline. His lab the next day was stable. DISCHARGE DIAGNOSES: 1. Congestive heart failure, biventricular, now improved post-hemodialysis. 2. Hyperkalemia, improved post-dialysis. 3. End-stage renal disease, chronic dialysis. 4. Status post cerebrovascular accident. 5. 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 PLAN: The patient will be discharged today. He will resume back to the correction. We will see him weekly in [place]. He will continue his diet with eating upright and chin tuck. DISCHARGE MEDICATIONS: Will be his current meds at the correction which were Tegretol 200 daily, baby aspirin 1 daily, lisinopril 40 daily, Plavix 75 daily, Li 60 daily, Senokot p.r.n., Zofran p.r.n., Colace p.r.n., Renagel 3200 t.i.d., Keppra 1000 b.i.d., and Tegretol 300 at bedtime, clonidine p.r.n., pravastatin 40 bedtime, metoprolol 25 b.i.d., and hydralazine 25 b.i.d. TRANSINT:[id number] Voice Confirmation ID: [id number] DOCUMENT ID: [id number] DEOB HURT MD at 0701 CC: [id number] DICTATION DATE: 07/13/17 0643 DIRECTOR INSTRUCTIONAL MATERIAL: 07/13/172019 DIS IN 07/13/17 [facility] [address] [place] [address]
== END 2017-07-13 14:26 | disposition home or self-care (01) | DRG 640 ==
LOC: D.ER 21:29 → D.M2 23:54
PROVIDERS: Family Medicine; Internal Medicine Nephrology; ADMIT Internal Medicine Nephrology
PROC: 5A1D70Z Performance of Urinary Filtration, Intermittent, Less than 6 Hours Per Day (ICD-10-PCS; principal; 2017-07-12)
DX: E87.5 Hyperkalemia (principal); N18.6 End stage renal disease; I13.2 Hypertensive heart and chronic kidney disease with heart failure and with stage 5 chronic kidney disease, or end stage renal disease; I50.9 Heart failure, unspecified; Z99.2 Dependence on renal dialysis; I25.10 Atherosclerotic heart disease of native coronary artery without angina pectoris; D63.1 Anemia in chronic kidney disease; Z87.891 Personal history of nicotine dependence; Z86.73 Personal history of transient ischemic attack (TIA), and cerebral infarction without residual deficits; Z95.5 Presence of coronary angioplasty implant and graft

== ENCOUNTER → 2017-07-20 12:57 | Outpatient (CLI) | payer MEDICARE ==
[2017-07-12 11:00] VITALS: BMI 33.0
[~2017-07-20 12:57] MED LIST changes: +CLARITIN 10 MG10 MG PO; +NEURONTIN 300300 MG PO; +NORVASC10 MG PO; +NORVASC2.5 MG PO
[2017-07-20 14:14] LABS: BASOPHILS 0.9 % (0-2); EOSINOPHILS 3.9 % (0-7); HEMATOCRIT 35.4 % (42.0-54.0); HEMOGLOBIN 11.2 g/dL (13.5-17.5); IMMATURE GRANULOCYTES 0.2 % (0-5); LYMPHOCYTES 20.1 % (15-50); MCH 33.3 pg (26.0-34.0); MCHC 31.6 g/dL (31.0-37.0); MCV 105.4 fL (80.0-100.0); MEAN PLATELET VOLUME 10.7 fL (7.4-10.4); MONOCYTES 16.5 % (2-11); NEUTROPHILS 58.4 % (40-80); RBC 3.36 10x6/uL (4.20-6.10); RDW 15.9 % (11.5-14.5); WBC 5.4 10x3/uL (4.8-10.8)
[2017-07-20 14:15] LABS: PLATELET COUNT 218 10x3/uL (130-400)
[2017-07-22 16:13] LABS: ANCA - ANTIMYELOPEROXIDASE <9.0 U/mL (0.0-9.0); ANCA - ANTIPROTEINASE 3 <3.5 U/mL (0.0-3.5); ANCA - ATYPICAL <1:20 titer (Neg:<1:20); ANCA - CYTOPLASMIC <1:20 titer (Neg:<1:20); ANCA - PERINUCLEAR <1:20 titer (Neg:<1:20)
== END | disposition home or self-care (01) ==
LOC: D.CT 12:57
PROVIDERS: Internal Medicine Pulmonary Disease
DX: R04.2 Hemoptysis (principal)

== ENCOUNTER 2017-08-10 20:29 | Inpatient (IN) | payer MEDICARE ==
[~2017-08-10] VITALS: Ht 177.8 cm; Wt 102.7 kg
[~2017-08-10 20:29] MED LIST changes: -NEURONTIN 300300 MG PO; -NORVASC10 MG PO; -NORVASC2.5 MG PO
[2017-08-10 21:36] LABS: BASOPHILS 0.5 % (0-2); EOSINOPHILS 1.8 % (0-7); HEMOGLOBIN 10.1 g/dL (13.5-17.5); IMMATURE GRANULOCYTES 0.2 % (0-5); LYMPHOCYTES 10.7 % (15-50); MCH 31.9 pg (26.0-34.0); MCHC 30.6 g/dL (31.0-37.0); MCV 104.1 fL (80.0-100.0); MEAN PLATELET VOLUME 10.3 fL (7.4-10.4); MONOCYTES 10.2 % (2-11); NEUTROPHILS 76.6 % (40-80); PLATELET COUNT 221 10x3/uL (130-400); RBC 3.17 10x6/uL (4.20-6.10); RDW 15.7 % (11.5-14.5); WBC 8.7 10x3/uL (4.8-10.8)
[2017-08-10 21:54] LABS: ALBUMIN 3.2 g/dL (3.4-5.0); BILIRUBIN - TOTAL 0.44 mg/dL (0.2-1.3); CALCIUM 8.9 mg/dL (8.5-10.1); CARBON DIOXIDE 21.8 mmol/L (21.0-32.0); CREATININE - SERUM 11.6 mg/dL (0.6-1.3); POTASSIUM - SERUM 5.8 mmol/L (3.5-5.1); PROTEIN - SERUM 8.1 g/dL (6.4-8.2)
[2017-08-11] VITALS (25 sets, daily range): BP systolic 128–180; BP diastolic 70–100; Ht 177.8 cm; Wt 102.7 kg
[2017-08-11] MEDS ORDERED: NORVASC2.5 MG PO (00:54)
[2017-08-11] MEDS ORDERED: NEURONTIN 300300 MG PO (00:58)
[2017-08-12] VITALS (8 sets, daily range): BP systolic 145–175; BP diastolic 71–100
[2017-08-12 07:30] LABS: BASOPHILS 1.4 % (0-2); EOSINOPHILS 4.9 % (0-7); HEMATOCRIT 27.3 % (42.0-54.0); HEMOGLOBIN 8.4 g/dL (13.5-17.5); IMMATURE GRANULOCYTES 0.2 % (0-5); LYMPHOCYTES 13.6 % (15-50); MCH 31.5 pg (26.0-34.0); MCHC 30.8 g/dL (31.0-37.0); MCV 102.2 fL (80.0-100.0); MEAN PLATELET VOLUME 10.4 fL (7.4-10.4); MONOCYTES 14.6 % (2-11); NEUTROPHILS 65.3 % (40-80); PLATELET COUNT 250 10x3/uL (130-400); RBC 2.67 10x6/uL (4.20-6.10); RDW 15.7 % (11.5-14.5)
[2017-08-12 07:33] LABS: WBC 4.9 10x3/uL (4.8-10.8)
[2017-08-12 07:41] LABS: ALBUMIN 2.8 g/dL (3.4-5.0); ANION GAP 18.2 mmol/L (8-16); BILIRUBIN - TOTAL 0.41 mg/dL (0.2-1.3); CALCIUM 8.3 mg/dL (8.5-10.1); CARBON DIOXIDE 27.8 mmol/L (21.0-32.0); CREATININE - SERUM 10.4 mg/dL (0.6-1.3); PROTEIN - SERUM 6.6 g/dL (6.4-8.2)
[2017-08-13 00:36] VITALS: BP 150/68
[2017-08-13 04:45] VITALS: BP 164/90
[2017-08-13 08:05] VITALS: BP 104/50
[2017-08-13 12:10] VITALS: BP 146/69
[2017-08-13 15:01] VITALS: BP 148/71
[2017-08-13 16:10] LABS: HEPATITIS C ANTIBODY 0.1 (0.0-0.9)
[2017-08-14 01:27] VITALS: BP 173/78
[2017-08-14 05:08] VITALS: BP 176/77
[2017-08-14 07:54] VITALS: BP 149/87
[2017-08-14 12:57] VITALS: BP 172/78
[2017-08-14 16:10] VITALS: BP 195/88
[2017-08-14 20:58] VITALS: BP 167/82
[2017-08-15 02:04] VITALS: BP 162/78
[2017-08-15 05:19] VITALS: BP 186/86
[2017-08-15 06:32] LABS: ALBUMIN 2.9 g/dL (3.4-5.0); ANION GAP 22.8 mmol/L (8-16); CALCIUM 7.9 mg/dL (8.5-10.1); CREATININE - SERUM 12.3 mg/dL (0.6-1.3); POTASSIUM - SERUM 4.8 mmol/L (3.5-5.1)
[2017-08-15 06:36] LABS: PHOSPHOROUS 10.3 mg/dL (2.5-4.9)
[2017-08-15 12:25] VITALS: BP 177/62
[2017-08-15 16:18] VITALS: BP 171/70
[2017-08-15] MEDS ORDERED: NORVASC10 MG PO (18:00)
== END 2017-08-15 19:17 | disposition home or self-care (01) | DRG 291 ==
LOC: D.ER 20:29 → D.ICU 22:46 → D.M2 08-12 16:56
PROVIDERS: Family Medicine; Internal Medicine; Internal Medicine Nephrology
DX: I13.2 Hypertensive heart and chronic kidney disease with heart failure and with stage 5 chronic kidney disease, or end stage renal disease (principal); N18.6 End stage renal disease; I50.9 Heart failure, unspecified; Z99.2 Dependence on renal dialysis; I25.10 Atherosclerotic heart disease of native coronary artery without angina pectoris; D63.1 Anemia in chronic kidney disease; J44.9 Chronic obstructive pulmonary disease, unspecified; E78.5 Hyperlipidemia, unspecified; I69.991 Dysphagia following unspecified cerebrovascular disease; R13.10 Dysphagia, unspecified; Z95.5 Presence of coronary angioplasty implant and graft; Z87.891 Personal history of nicotine dependence

== ENCOUNTER 2017-08-18 17:17 | Inpatient (IN) | payer MEDICARE ==
[~2017-08-18] VITALS: Ht 177.8 cm; Wt 52.2 kg
--- NOTE | ~2017-08-18 | DS ---
PATIENT:MILLI BOSWELL :[birth year] MEDICAL RECORD: [id number] DISCHARGE SUMMARY ADMISSION DATE: 08/18/17 DISCHARGE DATE: HISTORY: Mr. Boswell is a 57-year-old white male with chronic group home confinement post-CVA. He is mute. He has had recurrent admissions with pneumonia. Workup for aspiration has been essentially negative, readmitted again with shortness of breath and possible pneumonia. HOSPITAL COURSE: The patient was seen by GI, ENT, pulmonary, and a speech therapy, all of whom who felt like he probably was not aspirating. He does have evidence of COPD and also has large interdialytic weight gains, all of which are contributing to his shortness of breath. It was not recommended that he have replacement of his PEG tube. He did become tremulous on a pulmonary therapy and this improved with simplification of his pulmonary meds. During this time, he was otherwise stable. Tegretol and Keppra levels were also stable, underwent acute dialysis without difficulty. At the time of discharge, his mental status was back to baseline. Daughter requested rehabilitation evaluation for the group home and this will be accomplished. DISCHARGE DIAGNOSES: 1. Recurrent shortness of breath on a multifactorial basis. 2. Chronic obstructive pulmonary disease with possible aspiration. 3. Recurrent volume overload with evidence of systolic congestive heart failure. 4. End-stage renal disease. 5. Status post cerebrovascular accident, chronic mutism. PLAN: The patient will be discharged today after dialysis. We will have the case management director investigate rehab at the group home. We will resume [facility]. I will see him next week. He will remain on a soft diet with aspiration precautions with group home including bhavna adan. DISCHARGE MEDICATIONS: Will be amlodipine 2-1/2 every 12 hours; guaifenesin p.r.n.; Keppra 500 daily; steroid nasal spray daily; Tessalon Perles p.r.n.; Pepcid 20 b.i.d.; Lasix 40 on nondialysis day; Protonix 40 b.i.d. both of these were recommendations per GI; lisinopril 20 mg daily; Nephro-Claudia 1 daily, Colace p.r.n.; Renvela 3200 t.i.d.; Tegretol 300 at bedtime and 200 every morning; aspirin 1 daily; metoprolol 25 q.i.d.; Plavix 75 daily. TRANSINT:[id number] Voice Confirmation ID: [id number] DOCUMENT ID: [id number] DEBO HURT MD at 0704 CC: [id number] DICTATION DATE: 09/01/17 0752 LEG ASSEMBLER: 09/02/17 0406 ADM IN [facility] [address] [id number]
--- NOTE | ~2017-08-18 | EC ---
PATIENT:MILLI BOSWELL DATE OF SERVICE: 08/18/17 SEX: M MEDICAL RECORD: [id number] DATE OF : [birth year] LOCATION:D. D.211 AGE OF PATIENT: 57 ADMISSION DATE: 08/18/17 REFERRING PHYSICIAN: INTERPRETING PHYSICIAN: MALISSA MONTES MD ECHOCARDIOGRAM REPORT ECHO CHARGES 4 ECHO COMPLETE CLINICAL DIAGNOSIS: SOB HX OF CAD ECHOCARDIOGRAPHIC MEASUREMENTS (adult normal given) AC root (d.<3.7cm) 3.9 cm LV Septum d (<1.2 cm> 1.7 cm Valve Excursion 1.8 cm LV Septum (systole) 1.9 cm Left Atria (s.<4.0cm> 4.3 cm LVPW d(<1.2cm) 1.7 cm RV (d.<2.3cm) 4.1 cm LVPW (sytole) 1.9 cm LV diastole(<5.6CM) 7.3 cm MV E-F(>70mm/sec) cm LV systole 6.0 cm LVOT Diameter 2.0 cm MV exc.(>10mm) 1.6 cm Est.ejection fraction (50-75%) % Pericardial Effusion N DOPPLER: LVIT cm/sec A 108 cm/sec E 99 cm/sec LA cm/sec RVSP 29 mmHg LVOT 144 cm/sec AOP1/2T 667 m/s Asc. Ao 247 cm/sec RVOT 109 cm/sec RA cm/sec PA 170 cm/sec AV Gradient Peak 24.49mmHg AV Mean 14.56mmHg AV Area 2.0 cm MV Gradient Peak 5.05 mmHg MV Mean 2.70 mmHg MV Area cm COMMENTS: Technician Automated Equipment: Erin KLINE Chocolatier: 2 Dr. Del Castillo TAPE# PACS DATE OF SERVICE: 08/20/2017 PROCEDURE: Transthoracic echocardiogram. FINDINGS: 1. Left ventricle shows moderate left ventricular hypertrophy. There is mild dilatation of the left ventricular cavity with global hypokinesis and ejection fraction of 40% to 45%. Inflow characteristics are suggestive of diastolic dysfunction. 2. The left atrium appears to be ehgi-is-mkhnvyqsjd dilated. ECHOCARDIOGRAM REPORT [id number] MILLI BOSWELL 3. Mitral valve shows mitral annular calcification with oaoh-ez-krrqbgnk mitral regurgitation. 4. The aortic valve is thickened and sclerotic. There is moderate aortic insufficiency. There is mild elevation of velocities across the aortic valve, consistent with mild aortic stenosis. 5. Tricuspid valve has mild tricuspid regurgitation. Normal RVSP. 6. Pulmonic valve is not well visualized. 7. There is no noted pericardial effusion. 8. The right atrium is normal in size and normal in function. 9. The right ventricle appears to be mildly dilated. CONCLUSION: The patient has evidence of hypertensive heart disease with degenerative valve disease that is represented by mild aortic sclerosis with regurgitation and mild stenosis of the aortic valve. TRANSINT:[id number] Voice Confirmation ID: [id number] DOCUMENT ID: [id number] 08/30/2017 Edited to correct date of service, dm. MALISSA MONTES MD at 1038 CC: [id number] DICTATION DATE: 08/24/17 0849 PRODUCTION CONSULTANT: 08/24/17 1056 ADM IN [facility] [address] [place] [address]
[~2017-08-18 17:17] MED LIST changes: +NEURONTIN 300300 MG PO; +NORVASC10 MG PO; +NORVASC2.5 MG PO
[2017-08-18 20:02] LABS: ANION GAP 15.1 mmol/L (8-16); BILIRUBIN - TOTAL 0.27 mg/dL (0.2-1.3); CALCIUM 8.6 mg/dL (8.5-10.1); CARBON DIOXIDE 28.2 mmol/L (21.0-32.0); CREATININE - SERUM 6.1 mg/dL (0.6-1.3); POTASSIUM - SERUM 4.3 mmol/L (3.5-5.1); PROTEIN - SERUM 7.2 g/dL (6.4-8.2)
[2017-08-18 20:19] LABS: INR 1.1 (0.85-1.17); PROTIME 13.8 SECONDS (11.6-15.0)
[2017-08-18 20:25] LABS: BASOPHILS 1.1 % (0-2); EOSINOPHILS 4.3 % (0-7); HEMATOCRIT 20.8 % (42.0-54.0); IMMATURE GRANULOCYTES 0.5 % (0-5); MCH 30.1 pg (26.0-34.0); MCHC 30.3 g/dL (31.0-37.0); MCV 99.5 fL (80.0-100.0); MEAN PLATELET VOLUME 9.7 fL (7.4-10.4); MONOCYTES 16.2 % (2-11); NEUTROPHILS 56.9 % (40-80); PLATELET COUNT 233 10x3/uL (130-400); RBC 2.09 10x6/uL (4.20-6.10); RDW 15.6 % (11.5-14.5); WBC 4.4 10x3/uL (4.8-10.8)
[2017-08-18 20:30] LABS: HEMOGLOBIN 6.3 g/dL (13.5-17.5)
[2017-08-19] VITALS (7 sets, daily range): BP systolic 109–191; BP diastolic 55–73; BMI 31.5; BMI 31.2
[2017-08-19 06:33] LABS: BASOPHILS 0.4 % (0-2); EOSINOPHILS 0.9 % (0-7); HEMATOCRIT 20.5 % (42.0-54.0); IMMATURE GRANULOCYTES 0.1 % (0-5); MCH 30.4 pg (26.0-34.0); MCHC 30.7 g/dL (31.0-37.0); MONOCYTES 11.9 % (2-11); NEUTROPHILS 78.7 % (40-80); PLATELET COUNT 240 10x3/uL (130-400); RBC 2.07 10x6/uL (4.20-6.10); RDW 15.6 % (11.5-14.5)
[2017-08-19 06:46] LABS: ALBUMIN 3.1 g/dL (3.4-5.0); ANION GAP 21.3 mmol/L (8-16); BILIRUBIN - TOTAL 0.22 mg/dL (0.2-1.3); CALCIUM 8.7 mg/dL (8.5-10.1); CARBON DIOXIDE 23.3 mmol/L (21.0-32.0); CREATININE - SERUM 7.4 mg/dL (0.6-1.3); POTASSIUM - SERUM 4.6 mmol/L (3.5-5.1); PROTEIN - SERUM 6.8 g/dL (6.4-8.2)
[2017-08-19 06:52] LABS: HEMOGLOBIN 6.3 g/dL (13.5-17.5)
[2017-08-20 04:49] VITALS: BP 104/50
[2017-08-20 05:48] LABS: BASOPHILS 1.1 % (0-2); EOSINOPHILS 1.7 % (0-7); IMMATURE GRANULOCYTES 0.6 % (0-5); LYMPHOCYTES 14.4 % (15-50); MCH 30.7 pg (26.0-34.0); MCHC 31.9 g/dL (31.0-37.0); MEAN PLATELET VOLUME 10.3 fL (7.4-10.4); MONOCYTES 23.8 % (2-11); NEUTROPHILS 58.4 % (40-80); PLATELET COUNT 261 10x3/uL (130-400)
[2017-08-20 06:09] LABS: PHOSPHOROUS 6.5 mg/dL (2.5-4.9); POTASSIUM - SERUM 4.2 mmol/L (3.5-5.1)
[2017-08-20 06:11] LABS: HEMATOCRIT 27.3 % (42.0-54.0); HEMOGLOBIN 8.7 g/dL (13.5-17.5); MCV 96.5 fL (80.0-100.0); RBC 2.83 10x6/uL (4.20-6.10); WBC 5.3 10x3/uL (4.8-10.8)
[2017-08-20 06:14] LABS: CARBON DIOXIDE 29.2 mmol/L (21.0-32.0)
[2017-08-20 08:35] VITALS: BP 139/70
[2017-08-20 11:40] VITALS: BP 142/71
[2017-08-20 15:34] VITALS: BP 132/78
[2017-08-20 19:00] VITALS: BP 158/72
[2017-08-21 04:00] VITALS: BP 122/52
[2017-08-21 06:45] LABS: HEMATOCRIT 25.1 % (42.0-54.0); HEMOGLOBIN 8.1 g/dL (13.5-17.5); MCH 31.3 pg (26.0-34.0); MCHC 32.3 g/dL (31.0-37.0); MCV 96.9 fL (80.0-100.0); MEAN PLATELET VOLUME 10.4 fL (7.4-10.4); PLATELET COUNT 221 10x3/uL (130-400); RBC 2.59 10x6/uL (4.20-6.10); WBC 4.5 10x3/uL (4.8-10.8)
[2017-08-21 07:14] LABS: ANION GAP 19.9 mmol/L (8-16); CALCIUM 8.1 mg/dL (8.5-10.1); CARBON DIOXIDE 26.1 mmol/L (21.0-32.0)
[2017-08-21 07:16] LABS: CREATININE - SERUM 10.2 mg/dL (0.6-1.3); PHOSPHOROUS 9.7 mg/dL (2.5-4.9)
[2017-08-21 07:50] LABS: BASOPHILS 2 % (0-2); EOSINOPHILS 3 % (0-7); LYMPHOCYTES 14 % (15-50); MONOCYTES 16 % (2-11); NEUTROPHILS 63 % (40-80); PLATELET ESTIMATE NORMAL
[2017-08-21 08:04] VITALS: BP 115/57
[2017-08-21 11:34] VITALS: BP 129/66
[2017-08-21 15:37] VITALS: BP 142/68
[2017-08-21 21:26] VITALS: BP 130/46
[2017-08-22 01:29] VITALS: BP 130/52; BP 146/62
[2017-08-22 06:38] LABS: BASOPHILS 0.7 % (0-2); EOSINOPHILS 1.8 % (0-7); HEMATOCRIT 28.1 % (42.0-54.0); HEMOGLOBIN 8.9 g/dL (13.5-17.5); IMMATURE GRANULOCYTES 0.3 % (0-5); LYMPHOCYTES 22.6 % (15-50); MCH 30.7 pg (26.0-34.0); MCHC 31.7 g/dL (31.0-37.0); MCV 96.9 fL (80.0-100.0); MEAN PLATELET VOLUME 10.3 fL (7.4-10.4); NEUTROPHILS 61.6 % (40-80); RDW 16.6 % (11.5-14.5)
[2017-08-22 06:39] LABS: PLATELET COUNT 272 10x3/uL (130-400); WBC 6.7 10x3/uL (4.8-10.8)
[2017-08-22 06:59] LABS: % SATURATION 12 % (15-55); IRON 33 ug/dl (35-150); TOTAL IRON BIND CAPACITY 257 ug/dl (260-445); UNSAT IRON BIND CAPACITY 224 ug/dl (150-375)
[2017-08-22 07:07] LABS: ANION GAP 20.5 mmol/L (8-16); CALCIUM 8.5 mg/dL (8.5-10.1); CARBON DIOXIDE 26.8 mmol/L (21.0-32.0); CREATININE - SERUM 9.6 mg/dL (0.6-1.3); PHOSPHOROUS 7.7 mg/dL (2.5-4.9); POTASSIUM - SERUM 4.3 mmol/L (3.5-5.1)
[2017-08-22 07:58] VITALS: BP 155/74
[2017-08-22 11:24] VITALS: BP 123/61
[2017-08-22 15:35] VITALS: BP 102/60
[2017-08-22 21:27] VITALS: BP 137/55
[2017-08-23 01:46] VITALS: BP 156/66
[2017-08-23 05:07] LABS: BASOPHILS 0.5 % (0-2); EOSINOPHILS 1.7 % (0-7); HEMATOCRIT 27.5 % (42.0-54.0); HEMOGLOBIN 8.8 g/dL (13.5-17.5); IMMATURE GRANULOCYTES 0.1 % (0-5); LYMPHOCYTES 13.1 % (15-50); MCV 96.8 fL (80.0-100.0); MEAN PLATELET VOLUME 10.5 fL (7.4-10.4); MONOCYTES 12.3 % (2-11); NEUTROPHILS 72.3 % (40-80); PLATELET COUNT 218 10x3/uL (130-400); RBC 2.84 10x6/uL (4.20-6.10); RDW 16.5 % (11.5-14.5); WBC 7.6 10x3/uL (4.8-10.8)
[2017-08-23 05:40] VITALS: BP 136/62
[2017-08-23 05:44] LABS: ANION GAP 23.3 mmol/L (8-16); CALCIUM 7.8 mg/dL (8.5-10.1); CARBON DIOXIDE 25.2 mmol/L (21.0-32.0); POTASSIUM - SERUM 4.5 mmol/L (3.5-5.1)
[2017-08-23 05:48] LABS: CREATININE - SERUM 12.2 mg/dL (0.6-1.3); PHOSPHOROUS 10.1 mg/dL (2.5-4.9)
[2017-08-23 08:10] VITALS: BP 135/55
[2017-08-23 11:23] VITALS: BP 132/64
[2017-08-23 15:31] VITALS: BP 142/74
[2017-08-23 19:00] VITALS: BP 144/67
[2017-08-24 04:00] VITALS: BP 165/76
[2017-08-24 06:09] LABS: BASOPHILS 0.2 % (0-2); EOSINOPHILS 5.6 % (0-7); HEMATOCRIT 26.2 % (42.0-54.0); HEMOGLOBIN 8.1 g/dL (13.5-17.5); IMMATURE GRANULOCYTES 0.3 % (0-5); LYMPHOCYTES 18.1 % (15-50); MCH 30.3 pg (26.0-34.0); MCHC 30.9 g/dL (31.0-37.0); MCV 98.1 fL (80.0-100.0); MEAN PLATELET VOLUME 10.4 fL (7.4-10.4); MONOCYTES 11.2 % (2-11); NEUTROPHILS 64.6 % (40-80); PLATELET COUNT 229 10x3/uL (130-400); RBC 2.67 10x6/uL (4.20-6.10); RDW 16.4 % (11.5-14.5); WBC 6.4 10x3/uL (4.8-10.8)
[2017-08-24 06:33] LABS: ANION GAP 18.3 mmol/L (8-16); CALCIUM 7.9 mg/dL (8.5-10.1); CARBON DIOXIDE 26.5 mmol/L (21.0-32.0); PHOSPHOROUS 8.9 mg/dL (2.5-4.9)
[2017-08-24 06:35] LABS: POTASSIUM - SERUM 3.8 mmol/L (3.5-5.1)
[2017-08-24 07:42] VITALS: BP 145/53
[2017-08-24 10:19] LABS: FOLATE (FOLIC ACID) - SERUM >20.0 ng/mL (>3.0)
[2017-08-24 10:22] VITALS: Ht 177.8 cm; Wt 52.2 kg
[2017-08-24 11:26] VITALS: BP 121/52
[2017-08-24 15:35] VITALS: BP 128/66
[2017-08-24 20:46] VITALS: BP 145/70
[2017-08-25 04:46] VITALS: BP 174/64
[2017-08-25 05:39] LABS: BASOPHILS 0.2 % (0-2); EOSINOPHILS 3.4 % (0-7); HEMATOCRIT 28.3 % (42.0-54.0); HEMOGLOBIN 8.9 g/dL (13.5-17.5); IMMATURE GRANULOCYTES 0.4 % (0-5); LYMPHOCYTES 13.1 % (15-50); MCH 30.7 pg (26.0-34.0); MCHC 31.4 g/dL (31.0-37.0); MCV 97.6 fL (80.0-100.0); MEAN PLATELET VOLUME 10.6 fL (7.4-10.4); MONOCYTES 10.5 % (2-11); NEUTROPHILS 72.4 % (40-80); PLATELET COUNT 247 10x3/uL (130-400); RDW 16.1 % (11.5-14.5)
[2017-08-25 05:51] LABS: WBC 8.4 10x3/uL (4.8-10.8)
[2017-08-25 06:35] LABS: ANION GAP 22.4 mmol/L (8-16); CALCIUM 8.1 mg/dL (8.5-10.1); CARBON DIOXIDE 24.2 mmol/L (21.0-32.0); CREATININE - SERUM 13.2 mg/dL (0.6-1.3)
[2017-08-25 06:36] LABS: POTASSIUM - SERUM 4.6 mmol/L (3.5-5.1)
[2017-08-25 08:36] VITALS: BP 155/66
[2017-08-25 15:06] VITALS: BP 134/61
[2017-08-25 19:00] VITALS: BP 147/60
[2017-08-26 04:00] VITALS: BP 93/45
[2017-08-26 05:19] LABS: BASOPHILS 0.6 % (0-2); EOSINOPHILS 3.7 % (0-7); HEMATOCRIT 28.7 % (42.0-54.0); IMMATURE GRANULOCYTES 0.4 % (0-5); LYMPHOCYTES 19.4 % (15-50); MCH 30.8 pg (26.0-34.0); MCHC 31.4 g/dL (31.0-37.0); MCV 98.3 fL (80.0-100.0); MEAN PLATELET VOLUME 10.5 fL (7.4-10.4); MONOCYTES 10.9 % (2-11); PLATELET COUNT 269 10x3/uL (130-400); RBC 2.92 10x6/uL (4.20-6.10); RDW 16.3 % (11.5-14.5); WBC 7.3 10x3/uL (4.8-10.8)
[2017-08-26 05:46] LABS: ANION GAP 21.5 mmol/L (8-16); CALCIUM 8.8 mg/dL (8.5-10.1); CARBON DIOXIDE 27.2 mmol/L (21.0-32.0); CREATININE - SERUM 11.9 mg/dL (0.6-1.3); PHOSPHOROUS 7.9 mg/dL (2.5-4.9); POTASSIUM - SERUM 4.7 mmol/L (3.5-5.1)
[2017-08-26 08:08] VITALS: BP 142/69
[2017-08-26 11:37] VITALS: BP 123/62
[2017-08-26 16:01] VITALS: BP 154/65
[2017-08-26 21:52] VITALS: BP 157/87
[2017-08-27 06:17] VITALS: BP 159/71
[2017-08-27 06:39] LABS: BASOPHILS 0.2 % (0-2); EOSINOPHILS 4.8 % (0-7); HEMATOCRIT 30.7 % (42.0-54.0); HEMOGLOBIN 9.6 g/dL (13.5-17.5); IMMATURE GRANULOCYTES 0.5 % (0-5); LYMPHOCYTES 19.2 % (15-50); MCH 30.6 pg (26.0-34.0); MCHC 31.3 g/dL (31.0-37.0); MCV 97.8 fL (80.0-100.0); MEAN PLATELET VOLUME 10.5 fL (7.4-10.4); MONOCYTES 11.6 % (2-11); NEUTROPHILS 63.7 % (40-80); PLATELET COUNT 287 10x3/uL (130-400); RBC 3.14 10x6/uL (4.20-6.10); RDW 16.4 % (11.5-14.5); WBC 8.3 10x3/uL (4.8-10.8)
[2017-08-27 06:45] LABS: ANION GAP 26.8 mmol/L (8-16); CALCIUM 8.5 mg/dL (8.5-10.1); CARBON DIOXIDE 24.2 mmol/L (21.0-32.0); CREATININE - SERUM 14.7 mg/dL (0.6-1.3)
[2017-08-27 07:57] VITALS: BP 115/67
[2017-08-27 15:52] VITALS: BP 131/68
[2017-08-27 20:07] VITALS: BP 158/89
[2017-08-28] VITALS: BP 117/54
[2017-08-28 05:21] VITALS: BP 125/55
[2017-08-28 06:44] LABS: BASOPHILS 0.6 % (0-2); EOSINOPHILS 5.3 % (0-7); HEMATOCRIT 29.1 % (42.0-54.0); HEMOGLOBIN 8.9 g/dL (13.5-17.5); IMMATURE GRANULOCYTES 0.4 % (0-5); LYMPHOCYTES 17.4 % (15-50); MCH 30.5 pg (26.0-34.0); MCHC 30.6 g/dL (31.0-37.0); MCV 99.7 fL (80.0-100.0); MEAN PLATELET VOLUME 10.2 fL (7.4-10.4); NEUTROPHILS 65.3 % (40-80); PLATELET COUNT 291 10x3/uL (130-400); RBC 2.92 10x6/uL (4.20-6.10); RDW 16.6 % (11.5-14.5); WBC 7.1 10x3/uL (4.8-10.8)
[2017-08-28 06:55] LABS: ANION GAP 18.2 mmol/L (8-16); CALCIUM 8.9 mg/dL (8.5-10.1)
[2017-08-28 06:57] LABS: CREATININE - SERUM 10.2 mg/dL (0.6-1.3); POTASSIUM - SERUM 4.2 mmol/L (3.5-5.1)
[2017-08-28 12:28] VITALS: BP 103/46
[2017-08-28 17:30] VITALS: BP 98/71
[2017-08-28 21:16] VITALS: BP 125/64
[2017-08-29 01:23] VITALS: BP 137/68
[2017-08-29 05:58] VITALS: BP 103/48
[2017-08-29 08:13] VITALS: BP 162/69
[2017-08-29 11:48] VITALS: BP 125/62
[2017-08-29 16:19] VITALS: BP 140/59
[2017-08-29 21:39] VITALS: BP 161/94
[2017-08-30 00:54] VITALS: BP 168/83
[2017-08-30 06:02] VITALS: BP 160/70
[2017-08-30 09:46] VITALS: BP 99/51
[2017-08-30 16:32] VITALS: BP 118/58
[2017-08-30 19:00] VITALS: BP 115/82
[2017-08-31] VITALS: BP 190/75
[2017-08-31 08:36] VITALS: BP 122/48
[2017-08-31 09:33] VITALS: BP 122/48
[2017-08-31 12:11] VITALS: BP 130/48
[2017-08-31 17:50] VITALS: BP 107/58
[2017-08-31 22:14] VITALS: BP 137/65
[2017-09-01 01:10] VITALS: BP 134/64
[2017-09-01 05:07] VITALS: BP 124/58
[2017-09-01 05:47] LABS: BASOPHILS 0.4 % (0-2); EOSINOPHILS 4.1 % (0-7); HEMATOCRIT 25.2 % (42.0-54.0); HEMOGLOBIN 7.7 g/dL (13.5-17.5); IMMATURE GRANULOCYTES 0.9 % (0-5); LYMPHOCYTES 17.3 % (15-50); MCH 29.6 pg (26.0-34.0); MCHC 30.6 g/dL (31.0-37.0); MCV 96.9 fL (80.0-100.0); MEAN PLATELET VOLUME 10.3 fL (7.4-10.4); MONOCYTES 11.2 % (2-11); NEUTROPHILS 66.1 % (40-80); PLATELET COUNT 252 10x3/uL (130-400); RDW 16.5 % (11.5-14.5); WBC 7.1 10x3/uL (4.8-10.8)
[2017-09-01 06:22] LABS: ANION GAP 24.5 mmol/L (8-16); CALCIUM 8.1 mg/dL (8.5-10.1); CARBON DIOXIDE 23.1 mmol/L (21.0-32.0); CREATININE - SERUM 14.5 mg/dL (0.6-1.3); POTASSIUM - SERUM 4.6 mmol/L (3.5-5.1)
[2017-09-01 06:42] LABS: PHOSPHOROUS 10.8 mg/dL (2.5-4.9)
[2017-09-01 08:41] VITALS: BP 112/58
[2017-09-01 12:30] VITALS: BP 125/66
[2017-09-01 17:27] VITALS: BP 106/56
[2017-09-01 21:59] VITALS: BP 121/57
[2017-09-02 01:46] VITALS: BP 127/72
[2017-09-02 05:24] VITALS: BP 116/63
[2017-09-02 08:34] VITALS: BP 111/55
== END 2017-09-02 15:55 | disposition home or self-care (01) | DRG 177 ==
LOC: D.ER 17:17 → D.M2 22:25
PROVIDERS: Emergency Medicine; Family Medicine; Internal Medicine; Internal Medicine Nephrology; Nurse Practitioner Family
PROC: 5A1D70Z Performance of Urinary Filtration, Intermittent, Less than 6 Hours Per Day (ICD-10-PCS; principal; 2017-08-19)
DX: J69.0 Pneumonitis due to inhalation of food and vomit (principal); N18.6 End stage renal disease; I13.2 Hypertensive heart and chronic kidney disease with heart failure and with stage 5 chronic kidney disease, or end stage renal disease; J44.1 Chronic obstructive pulmonary disease with (acute) exacerbation; J98.11 Atelectasis; I50.22 Chronic systolic (congestive) heart failure; I69.991 Dysphagia following unspecified cerebrovascular disease; R13.10 Dysphagia, unspecified; Z99.2 Dependence on renal dialysis; I25.10 Atherosclerotic heart disease of native coronary artery without angina pectoris; I73.9 Peripheral vascular disease, unspecified; E78.5 Hyperlipidemia, unspecified; E83.39 Other disorders of phosphorus metabolism; G40.909 Epilepsy, unspecified, not intractable, without status epilepticus; D63.1 Anemia in chronic kidney disease; K21.9 Gastro-esophageal reflux disease without esophagitis; J32.9 Chronic sinusitis, unspecified; Z95.5 Presence of coronary angioplasty implant and graft

== ENCOUNTER 2017-09-12 15:52 | Inpatient (IN) | payer MEDICARE ==
[2017-09-12 16:52] LABS: BASOPHILS 0.7 % (0-2); EOSINOPHILS 2.2 % (0-7); HEMATOCRIT 31.3 % (42.0-54.0); HEMOGLOBIN 9.6 g/dL (13.5-17.5); IMMATURE GRANULOCYTES 0.6 % (0-5); LYMPHOCYTES 20.8 % (15-50); MCH 30.1 pg (26.0-34.0); MCHC 30.7 g/dL (31.0-37.0); MCV 98.1 fL (80.0-100.0); MEAN PLATELET VOLUME 10.3 fL (7.4-10.4); MONOCYTES 11.7 % (2-11); PLATELET COUNT 282 10x3/uL (130-400); RBC 3.19 10x6/uL (4.20-6.10); WBC 6.7 10x3/uL (4.8-10.8)
[2017-09-12 17:16] LABS: BILIRUBIN - TOTAL 0.37 mg/dL (0.2-1.3); CARBON DIOXIDE 20.3 mmol/L (21.0-32.0); PROTEIN - SERUM 7.4 g/dL (6.4-8.2)
[2017-09-12 17:36] LABS: CALCIUM 8.6 mg/dL (8.5-10.1); CREATININE - SERUM 12.7 mg/dL (0.6-1.3)
[2017-09-12 17:41] LABS: ANION GAP 24.2 mmol/L (8-16); POTASSIUM - SERUM 7.5 mmol/L (3.5-5.1)
[2017-09-12 22:27] LABS: CALCIUM 9.6 mg/dL (8.5-10.1); MAGNESIUM - SERUM 2.3 mg/dL (1.8-2.4); PHOSPHOROUS 4.8 mg/dL (2.5-4.9)
[2017-09-12 22:28] LABS: ANION GAP 19.2 mmol/L (8-16); CARBON DIOXIDE 26.4 mmol/L (21.0-32.0); CREATININE - SERUM 8.2 mg/dL (0.6-1.3); POTASSIUM - SERUM 3.6 mmol/L (3.5-5.1)
[2017-09-13] VITALS: BP 94/48
[2017-09-13 04:00] VITALS: BP 127/65
[2017-09-13 07:46] VITALS: BP 144/62
[2017-09-13 11:47] VITALS: BP 110/50
[2017-09-13 13:19] VITALS: Ht 177.8 cm
== END 2017-09-13 18:26 | DRG 640 ==
LOC: D.ER 15:52 → D.M2 19:28 → D.ICU 09-13 18:14
PROVIDERS: Family Medicine
PROC: 5A1D70Z Performance of Urinary Filtration, Intermittent, Less than 6 Hours Per Day (ICD-10-PCS; 2017-09-12)
PROC: 5A12012 Performance of Cardiac Output, Single, Manual (ICD-10-PCS; principal; 2017-09-13)
PROC: 5A12012 Performance of Cardiac Output, Single, Manual (ICD-10-PCS; 2017-09-13)
PROC: 0BH17EZ Insertion of Endotracheal Airway into Trachea, Via Natural or Artificial Opening (ICD-10-PCS; 2017-09-13)
PROC: 5A1935Z Respiratory Ventilation, Less than 24 Consecutive Hours (ICD-10-PCS; 2017-09-13)
DX: E87.5 Hyperkalemia (principal); N18.6 End stage renal disease; I13.2 Hypertensive heart and chronic kidney disease with heart failure and with stage 5 chronic kidney disease, or end stage renal disease; K80.10 Calculus of gallbladder with chronic cholecystitis without obstruction; I50.9 Heart failure, unspecified; Z99.2 Dependence on renal dialysis; J44.9 Chronic obstructive pulmonary disease, unspecified; I69.991 Dysphagia following unspecified cerebrovascular disease; R13.10 Dysphagia, unspecified; I25.10 Atherosclerotic heart disease of native coronary artery without angina pectoris; D63.1 Anemia in chronic kidney disease; G40.909 Epilepsy, unspecified, not intractable, without status epilepticus; E78.5 Hyperlipidemia, unspecified; R00.1 Bradycardia, unspecified